=== PATIENT | female | born 1950 | race Caucasian/White ===

== ENCOUNTER 2017-12-01 09:06 | Outpatient (CLI) | payer OTHER ==
[~2017-12-01 09:06] MED LIST: AMOX1TAB12 PO; CYMBALTA60 MG PO; HYZAAR 100/25 T1 TAB PO; METFORMIN HCL500 MG PO; SYNTHROID112 MCG PO
== END 2017-12-01 09:12 | disposition home or self-care (01) ==
LOC: LAB 09:06
DX: D37.039 Neoplasm of uncertain behavior of the major salivary glands, unspecified (principal)

== ENCOUNTER 2017-12-14 10:40 | Outpatient (CLI) | payer OTHER | END 2017-12-14 10:46 | disposition home or self-care (01) | LOC: SONOGRAMA 10:40 | DX: E21.3 Hyperparathyroidism, unspecified (principal); D35.1 Benign neoplasm of parathyroid gland ==

== ENCOUNTER 2017-12-15 12:31 | Outpatient (CLI) | payer OTHER | END 2017-12-15 12:38 | disposition home or self-care (01) | LOC: NUCLEAR 12:31 | DX: E21.3 Hyperparathyroidism, unspecified (principal) | CPT/HCPCS: 78070; A9500 ==

== ENCOUNTER 2018-05-02 10:32 | Outpatient (CLI) | payer OTHER | END 2018-05-02 10:40 | disposition home or self-care (01) | LOC: LAB 10:32 | DX: E03.8 Other specified hypothyroidism (principal); E11.65 Type 2 diabetes mellitus with hyperglycemia; E21.2 Other hyperparathyroidism; M83.8 Other adult osteomalacia ==

== ENCOUNTER 2018-06-02 08:42 | Outpatient (CLI) | payer OTHER | END 2018-06-02 08:50 | disposition home or self-care (01) | LOC: LAB 08:42 | DX: E21.3 Hyperparathyroidism, unspecified (principal); E11.65 Type 2 diabetes mellitus with hyperglycemia; E03.8 Other specified hypothyroidism; I11.9 Hypertensive heart disease without heart failure ==

== ENCOUNTER 2018-08-23 09:38 | Outpatient (CLI) | payer OTHER | END 2018-08-23 09:42 | disposition home or self-care (01) | LOC: LAB 09:38 | DX: E11.65 Type 2 diabetes mellitus with hyperglycemia (principal); E11.21 Type 2 diabetes mellitus with diabetic nephropathy; E03.8 Other specified hypothyroidism; E21.2 Other hyperparathyroidism; N18.3 Chronic kidney disease, stage 3 (moderate); D63.1 Anemia in chronic kidney disease; N30.00 Acute cystitis without hematuria; E78.49 Other hyperlipidemia ==

== ENCOUNTER 2018-08-25 12:21 | Outpatient (CLI) | payer OTHER | END 2018-08-25 12:31 | disposition home or self-care (01) | LOC: LAB 12:21 | DX: N18.3 Chronic kidney disease, stage 3 (moderate) (principal); E11.21 Type 2 diabetes mellitus with diabetic nephropathy; D63.1 Anemia in chronic kidney disease; N30.00 Acute cystitis without hematuria; E78.49 Other hyperlipidemia; E03.8 Other specified hypothyroidism ==

== ENCOUNTER 2019-02-27 10:01 | Outpatient (CLI) | payer OTHER | END 2019-02-27 10:10 | disposition home or self-care (01) | LOC: LAB 10:01 | DX: E03.8 Other specified hypothyroidism (principal); E11.65 Type 2 diabetes mellitus with hyperglycemia; I10 Essential (primary) hypertension; I11.9 Hypertensive heart disease without heart failure; E78.2 Mixed hyperlipidemia; E11.9 Type 2 diabetes mellitus without complications; D47.2 Monoclonal gammopathy ==

== ENCOUNTER 2019-03-03 10:42 | Outpatient (CLI) | payer OTHER | END 2019-03-03 10:58 | disposition home or self-care (01) | LOC: SONOGRAMA 10:42 → MAMO-SONO 11:15 | DX: E04.1 Nontoxic single thyroid nodule (principal) ==

== ENCOUNTER → 2019-06-13 10:10 | Outpatient (CLI) | payer OTHER | END | disposition home or self-care (01) | LOC: LAB 10:10 | DX: E11.9 Type 2 diabetes mellitus without complications (principal); E11.21 Type 2 diabetes mellitus with diabetic nephropathy; E03.8 Other specified hypothyroidism; E78.00 Pure hypercholesterolemia, unspecified ==

== ENCOUNTER 2019-09-18 09:44 | Emergency (ER) | payer OTHER ==
[~2019-09-18] VITALS: Ht 165.1 cm; Wt 92.1 kg
[2019-09-18] MEDS ORDERED: NORVASC5 MG PO (10:27)
[2019-09-18] MEDS ORDERED: HYZAAR PO (10:27)
[2019-09-18] MEDS ORDERED: CRESTOR10 MG PO (10:28)
[2019-09-18] MEDS ORDERED: CEFADROXIL500 MG PO (14:52)
== END 2019-09-18 15:54 | disposition home or self-care (01) ==
LOC: ER 09:44
DX: G89.11 Acute pain due to trauma (principal); M79.672 Pain in left foot

== ENCOUNTER → 2019-09-28 08:40 | Outpatient (CLI) | payer OTHER ==
[~2019-09-28 08:40] MED LIST changes: +CEFADROXIL500 MG PO; +CRESTOR10 MG PO; +HYZAAR PO; +NORVASC5 MG PO
== END | disposition home or self-care (01) ==
LOC: LAB 08:40
DX: E03.8 Other specified hypothyroidism (principal); I10 Essential (primary) hypertension; E11.65 Type 2 diabetes mellitus with hyperglycemia; E78.2 Mixed hyperlipidemia

== ENCOUNTER 2019-12-20 07:45 | Outpatient (CLI) | payer OTHER | END 2019-12-20 07:50 | disposition home or self-care (01) | LOC: LAB 07:45 | DX: E78.2 Mixed hyperlipidemia (principal); I10 Essential (primary) hypertension; M83.8 Other adult osteomalacia; E03.8 Other specified hypothyroidism ==

== ENCOUNTER 2020-04-22 07:59 | Outpatient (CLI) | payer OTHER | END 2020-04-22 13:04 | disposition home or self-care (01) | LOC: LAB 07:59 | PROVIDERS: ATTEND Internal Medicine Endocrinology, Diabetes & Metabolism | DX: E03.8 Other specified hypothyroidism (principal); I10 Essential (primary) hypertension; E11.65 Type 2 diabetes mellitus with hyperglycemia ==

== ENCOUNTER → 2020-08-28 08:27 | Outpatient (CLI) | payer OTHER | END | disposition home or self-care (01) | LOC: LAB 08:27 | PROVIDERS: ATTEND Internal Medicine Endocrinology, Diabetes & Metabolism | DX: E03.8 Other specified hypothyroidism (principal); I10 Essential (primary) hypertension; E11.65 Type 2 diabetes mellitus with hyperglycemia; M83.8 Other adult osteomalacia; E78.2 Mixed hyperlipidemia ==

== ENCOUNTER 2020-09-23 08:30 | Outpatient (CLI) | payer OTHER | END 2020-09-23 08:48 | disposition home or self-care (01) | LOC: LAB 08:30 | PROVIDERS: ATTEND Internal Medicine Cardiovascular Disease | DX: I11.9 Hypertensive heart disease without heart failure (principal); E11.9 Type 2 diabetes mellitus without complications; E78.00 Pure hypercholesterolemia, unspecified ==

== ENCOUNTER 2021-03-28 09:43 | Outpatient (CLI) | payer OTHER | END 2021-03-28 09:51 | disposition home or self-care (01) | LOC: LAB 09:43 | PROVIDERS: ATTEND Internal Medicine Endocrinology, Diabetes & Metabolism | DX: E03.9 Hypothyroidism, unspecified (principal); M83.9 Adult osteomalacia, unspecified; E11.65 Type 2 diabetes mellitus with hyperglycemia ==

== ENCOUNTER 2021-07-29 09:00 | Outpatient (CLI) | payer OTHER | END 2021-07-29 09:30 | disposition home or self-care (01) | LOC: PPH VACUNA 09:00 | PROVIDERS: ATTEND Emergency Medicine Pediatric Emergency Medicine | DX: Z23 Encounter for immunization (principal) ==

== ENCOUNTER → 2021-08-27 07:19 | Outpatient (CLI) | payer OTHER | END | disposition home or self-care (01) | LOC: LAB 07:19 | PROVIDERS: ATTEND Internal Medicine Nephrology | DX: N18.31 Chronic kidney disease, stage 3a (principal); I10 Essential (primary) hypertension; E11.22 Type 2 diabetes mellitus with diabetic chronic kidney disease; E21.3 Hyperparathyroidism, unspecified; I11.0 Hypertensive heart disease with heart failure; E78.2 Mixed hyperlipidemia; E11.9 Type 2 diabetes mellitus without complications; E21.2 Other hyperparathyroidism ==

== ENCOUNTER → 2021-12-08 08:11 | Outpatient (CLI) | payer OTHER | END | disposition home or self-care (01) | LOC: LAB 08:11 | PROVIDERS: ATTEND Internal Medicine Nephrology | DX: I11.9 Hypertensive heart disease without heart failure (principal); E78.1 Pure hyperglyceridemia; E11.22 Type 2 diabetes mellitus with diabetic chronic kidney disease; R80.9 Proteinuria, unspecified ==

== ENCOUNTER 2022-04-14 08:40 | Outpatient (CLI) | payer OTHER | END 2022-04-14 08:55 | disposition home or self-care (01) | LOC: PPH VACUNA 08:40 | PROVIDERS: ATTEND Emergency Medicine Pediatric Emergency Medicine | DX: Z23 Encounter for immunization (principal) ==

== ENCOUNTER 2022-05-21 08:07 | Outpatient (CLI) | payer OTHER | END 2022-05-21 08:12 | disposition home or self-care (01) | LOC: LAB 08:07 | PROVIDERS: ATTEND Internal Medicine | DX: E21.3 Hyperparathyroidism, unspecified (principal); E55.9 Vitamin D deficiency, unspecified; E11.65 Type 2 diabetes mellitus with hyperglycemia; E03.8 Other specified hypothyroidism ==

== ENCOUNTER 2022-05-21 11:23 | Outpatient (CLI) | payer OTHER | END 2022-05-21 11:28 | disposition home or self-care (01) | LOC: SONOGRAMA 11:23 | PROVIDERS: ATTEND Internal Medicine | DX: E04.2 Nontoxic multinodular goiter (principal); R22.1 Localized swelling, mass and lump, neck ==

== ENCOUNTER 2022-07-20 08:04 | Emergency (ER) | payer OTHER ==
[~2022-07-20] VITALS: Ht 165.1 cm; Wt 92.5 kg
[~2022-07-20 08:04] MED LIST changes: +COZAAR100 MG PO; +SYNTHROID88 MCG PO
== END 2022-07-20 17:26 | disposition home or self-care (01) ==
LOC: ER 08:04
DX: K52.9 Noninfective gastroenteritis and colitis, unspecified (principal); I10 Essential (primary) hypertension; N19 Unspecified kidney failure; D72.823 Leukemoid reaction; K44.9 Diaphragmatic hernia without obstruction or gangrene; K80.20 Calculus of gallbladder without cholecystitis without obstruction

== ENCOUNTER 2022-07-23 07:00 | Outpatient (CLI) | payer OTHER | END 2022-07-23 07:01 | disposition home or self-care (01) | LOC: LAB 07:00 | PROVIDERS: ATTEND Internal Medicine | DX: I10 Essential (primary) hypertension (principal); K51.90 Ulcerative colitis, unspecified, without complications; N18.9 Chronic kidney disease, unspecified ==

== ENCOUNTER → 2022-07-28 07:56 | Outpatient (CLI) | payer OTHER | END | disposition home or self-care (01) | LOC: LAB 07:56 | PROVIDERS: ATTEND Internal Medicine | DX: E11.9 Type 2 diabetes mellitus without complications (principal); N18.30 Chronic kidney disease, stage 3 unspecified; I10 Essential (primary) hypertension; E21.3 Hyperparathyroidism, unspecified; E03.9 Hypothyroidism, unspecified; K51.90 Ulcerative colitis, unspecified, without complications ==

== ENCOUNTER 2022-08-13 12:10 | Outpatient (CLI) | payer OTHER | END 2022-08-13 12:11 | disposition home or self-care (01) | LOC: LAB 12:10 | PROVIDERS: ATTEND Internal Medicine | DX: E11.9 Type 2 diabetes mellitus without complications (principal); N18.30 Chronic kidney disease, stage 3 unspecified; I10 Essential (primary) hypertension; E21.3 Hyperparathyroidism, unspecified; E03.9 Hypothyroidism, unspecified; K51.90 Ulcerative colitis, unspecified, without complications; E55.9 Vitamin D deficiency, unspecified ==

== ENCOUNTER 2022-09-01 20:35 | Emergency (ER) | payer OTHER ==
[~2022-09-01] VITALS: Ht 165.1 cm; Wt 92.5 kg
[~2022-09-01 20:35] MED LIST changes: +AMOX1TAB5 PO
[2022-09-02] MEDS ORDERED: DOXYCYCLINE HY100 M2 PO (10:43)
== END 2022-09-02 10:51 | disposition home or self-care (01) ==
LOC: ER 20:35
DX: L03.115 Cellulitis of right lower limb (principal); E11.9 Type 2 diabetes mellitus without complications; Z79.84 Long term (current) use of oral hypoglycemic drugs; E03.9 Hypothyroidism, unspecified

== ENCOUNTER 2022-09-03 12:24 | Outpatient (CLI) | payer OTHER ==
[~2022-09-03 12:24] MED LIST changes: +DOXYCYCLINE HY100 M2 PO
== END 2022-09-03 12:29 | disposition home or self-care (01) ==
LOC: SONOGRAMA 12:24
PROVIDERS: ATTEND Otolaryngology
DX: D35.1 Benign neoplasm of parathyroid gland (principal)

== ENCOUNTER 2022-09-05 07:40 | Outpatient (CLI) | payer OTHER | END 2022-09-05 07:42 | disposition home or self-care (01) | LOC: LAB 07:40 | PROVIDERS: ATTEND General Practice | DX: L03.115 Cellulitis of right lower limb (principal) ==

== ENCOUNTER 2022-09-22 07:35 | Outpatient (CLI) | payer OTHER | END 2022-09-22 07:37 | disposition home or self-care (01) | LOC: LAB 07:35 | PROVIDERS: ATTEND Internal Medicine | DX: E11.9 Type 2 diabetes mellitus without complications (principal); N18.30 Chronic kidney disease, stage 3 unspecified; I10 Essential (primary) hypertension; E21.3 Hyperparathyroidism, unspecified; E03.9 Hypothyroidism, unspecified ==

== ENCOUNTER 2022-10-01 13:06 | Outpatient (CLI) | payer OTHER | END 2022-10-01 13:08 | disposition home or self-care (01) | LOC: SONOGRAMA 13:06 | PROVIDERS: ATTEND Pathology Anatomic Pathology & Clinical Pathology | DX: D44.0 Neoplasm of uncertain behavior of thyroid gland (principal); E04.1 Nontoxic single thyroid nodule ==

== ENCOUNTER 2022-10-21 10:17 | Emergency (ER) | payer OTHER ==
[~2022-10-21] VITALS: Ht 165.1 cm; Wt 92.5 kg
[2022-10-21] MEDS ORDERED: LOSARTAN POTAS100 MG PO (10:24)
[2022-10-21] MEDS ORDERED: CIPRO500 MG PO (15:18)
== END 2022-10-21 15:26 | disposition home or self-care (01) ==
LOC: ER 10:17
DX: N30.90 Cystitis, unspecified without hematuria (principal); Z86.79 Personal history of other diseases of the circulatory system; Z86.39 Personal history of other endocrine, nutritional and metabolic disease

== ENCOUNTER 2022-10-26 10:05 | Outpatient (CLI) | payer OTHER ==
[~2022-10-26 10:05] MED LIST changes: +CIPRO500 MG PO; +LOSARTAN POTAS100 MG PO
== END 2022-10-26 15:13 | disposition home or self-care (01) ==
LOC: LAB 10:05
PROVIDERS: ATTEND Internal Medicine
DX: R94.5 Abnormal results of liver function studies (principal); E11.9 Type 2 diabetes mellitus without complications; N18.30 Chronic kidney disease, stage 3 unspecified; E21.3 Hyperparathyroidism, unspecified; E03.9 Hypothyroidism, unspecified; I10 Essential (primary) hypertension; Z86.19 Personal history of other infectious and parasitic diseases

== ENCOUNTER 2022-11-05 11:12 | Outpatient (CLI) | payer OTHER | END 2022-11-05 14:41 | disposition home or self-care (01) | LOC: LAB 11:12 | PROVIDERS: ATTEND Otolaryngology | DX: R05.9 Cough, unspecified (principal); Z20.828 Contact with and (suspected) exposure to other viral communicable diseases; C73 Malignant neoplasm of thyroid gland; E21.3 Hyperparathyroidism, unspecified ==

== ENCOUNTER 2022-11-12 06:50 | Outpatient (CLI) | payer OTHER | END 2022-11-12 06:56 | disposition home or self-care (01) | LOC: LAB 06:50 | PROVIDERS: ATTEND Internal Medicine | DX: N18.30 Chronic kidney disease, stage 3 unspecified (principal) ==

== ENCOUNTER 2022-11-24 12:16 | Outpatient (CLI) | payer OTHER | END 2022-11-24 12:17 | disposition home or self-care (01) | LOC: LAB 12:16 | PROVIDERS: ATTEND Otolaryngology | DX: Z03.818 Encounter for observation for suspected exposure to other biological agents ruled out (principal) ==

== ENCOUNTER 2022-11-27 05:11 | Inpatient (IN) | payer OTHER | END 2022-11-28 14:19 | disposition home or self-care (01) | DRG 627 | LOC: CIR.AMB 05:11 → SURH 13:45 → O/R 13:45 → SURH 14:07 | PROVIDERS: ADMIT Otolaryngology; ATTEND Otolaryngology | PROC: 0GTR0ZZ Resection of Parathyroid Gland, Open Approach (ICD-10-PCS; 2022-11-27) | PROC: 0GTH0ZZ Resection of Right Thyroid Gland Lobe, Open Approach (ICD-10-PCS; principal; 2022-11-27 07:00) | DX: C73 Malignant neoplasm of thyroid gland (principal); Z20.822 Contact with and (suspected) exposure to COVID-19 ==

== ENCOUNTER 2022-12-28 10:31 | Outpatient (CLI) | payer OTHER | END 2022-12-28 10:43 | disposition home or self-care (01) | LOC: LAB 10:31 | PROVIDERS: ATTEND Internal Medicine | DX: E11.65 Type 2 diabetes mellitus with hyperglycemia (principal); C73 Malignant neoplasm of thyroid gland; E03.8 Other specified hypothyroidism; I10 Essential (primary) hypertension; E78.5 Hyperlipidemia, unspecified; E21.3 Hyperparathyroidism, unspecified ==

== ENCOUNTER 2023-02-02 11:41 | Outpatient (CLI) | payer OTHER | END 2023-02-02 11:42 | disposition home or self-care (01) | LOC: LAB 11:41 → EDBD 11:41 → LAB 11:42 | PROVIDERS: ATTEND Internal Medicine | DX: K80.20 Calculus of gallbladder without cholecystitis without obstruction (principal); E21.3 Hyperparathyroidism, unspecified; K51.90 Ulcerative colitis, unspecified, without complications; E55.9 Vitamin D deficiency, unspecified; Z86.19 Personal history of other infectious and parasitic diseases; D21.3 Benign neoplasm of connective and other soft tissue of thorax; E11.21 Type 2 diabetes mellitus with diabetic nephropathy; E03.8 Other specified hypothyroidism; C73 Malignant neoplasm of thyroid gland; N18.4 Chronic kidney disease, stage 4 (severe); R80.9 Proteinuria, unspecified ==

== ENCOUNTER 2023-05-13 09:16 | Outpatient (CLI) | payer OTHER | END 2023-05-13 09:21 | disposition home or self-care (01) | LOC: SONOGRAMA 09:16 | PROVIDERS: ATTEND Internal Medicine | DX: C73 Malignant neoplasm of thyroid gland (principal); R22.1 Localized swelling, mass and lump, neck ==

== ENCOUNTER 2023-05-17 07:28 | Outpatient (CLI) | payer OTHER | END 2023-05-17 07:30 | disposition home or self-care (01) | LOC: LAB 07:28 | PROVIDERS: ATTEND Internal Medicine | DX: C73 Malignant neoplasm of thyroid gland (principal) ==

== ENCOUNTER 2023-06-05 09:10 | Outpatient (CLI) | payer OTHER | END 2023-06-05 09:16 | disposition home or self-care (01) | LOC: LAB 09:10 | PROVIDERS: ATTEND Internal Medicine Nephrology | DX: R80.9 Proteinuria, unspecified (principal); N18.32 Chronic kidney disease, stage 3b ==

== ENCOUNTER 2023-06-07 14:22 | Outpatient (CLI) | payer OTHER | END 2023-06-07 14:26 | disposition home or self-care (01) | LOC: RAD 14:22 | PROVIDERS: ATTEND Internal Medicine | DX: S99.922A Unspecified injury of left foot, initial encounter (principal) ==

== ENCOUNTER 2023-06-10 09:17 | Outpatient (CLI) | payer OTHER | END 2023-06-10 15:34 | disposition home or self-care (01) | LOC: LAB 09:17 | PROVIDERS: ATTEND Internal Medicine | DX: N18.4 Chronic kidney disease, stage 4 (severe) (principal) ==

== ENCOUNTER 2023-07-01 10:35 | Outpatient (CLI) | payer OTHER | END 2023-07-01 10:38 | disposition home or self-care (01) | LOC: LAB 10:35 | PROVIDERS: ATTEND Internal Medicine Nephrology | DX: E11.22 Type 2 diabetes mellitus with diabetic chronic kidney disease (principal); N18.4 Chronic kidney disease, stage 4 (severe); R80.9 Proteinuria, unspecified; E11.65 Type 2 diabetes mellitus with hyperglycemia; E78.5 Hyperlipidemia, unspecified; E03.8 Other specified hypothyroidism; E11.21 Type 2 diabetes mellitus with diabetic nephropathy; E55.9 Vitamin D deficiency, unspecified; E53.8 Deficiency of other specified B group vitamins ==

== ENCOUNTER 2023-07-05 14:40 | Outpatient (CLI) | payer OTHER | END 2023-07-05 14:41 | disposition home or self-care (01) | LOC: LAB 14:40 | PROVIDERS: ATTEND Internal Medicine | DX: C11.1 Malignant neoplasm of posterior wall of nasopharynx (principal); J06.9 Acute upper respiratory infection, unspecified; R50.9 Fever, unspecified; Z20.822 Contact with and (suspected) exposure to COVID-19 ==

== ENCOUNTER → 2023-07-27 08:22 | Outpatient (CLI) | payer OTHER ==
[2023-07-27 09:17] LABS: HEMATOCRIT 30.7 % (36.0-45.00); HEMOGLOBIN 10.1 g/dL (12.0-15.00); MEAN CELL VOLUME 86.1 fL (80.00-100.00); MEAN CORPUSCULAR HEMOGLOBIN 28.4 pg (27.00-32.0); PLATELET COUNT 369 K/uL (150-450); RED BLOOD COUNT 3.56 M/uL (4.00-6.00); RED CELL DISTRIBUTION WIDTH 13.8 % (11.5-14.5)
[2023-07-27 10:06] LABS: ALBUMIN 3.1 gm/dL (3.4-5.0); BILIRUBIN TOTAL 0.34 mg/dL (0.3-1.2); CALCIUM 8.5 mg/dL (8.5-10.1); CREATININE SERUM 3.71 mg/dL (0.55-1.02); GFR 12.04; GLOBULINA 3.5 G/DL (2.4-3.5); POTASSIUM 5.12 mEq/L (3.5-5.1); TOTAL PROTEIN 6.6 gm/dL (6.4-8.2)
== END | disposition home or self-care (01) ==
LOC: LAB 08:22
PROVIDERS: ATTEND Internal Medicine Cardiovascular Disease
DX: E11.9 Type 2 diabetes mellitus without complications (principal)

== ENCOUNTER 2023-08-27 12:20 | Outpatient (CLI) | payer OTHER ==
[2023-08-27 13:14] LABS: HEMATOCRIT 31.8 % (36.0-45.00); MEAN CELL VOLUME 84.6 fL (80.00-100.00); MEAN CORPUSCULAR HEMOGLOBIN 29.2 pg (27.00-32.0); MEAN CORPUSCULAR HGB CONC 34.5 g/dl (32.0-36.0); PLATELET COUNT 280 K/uL (150-450); RED BLOOD COUNT 3.75 M/uL (4.00-6.00); RED CELL DISTRIBUTION WIDTH 14.7 % (11.5-14.5)
[2023-08-27 13:40] LABS: URINE APPEARANCE Clear; URINE BILIRRUBIN Negative (NEGATIVE); URINE BLOOD Negative; URINE COLOR Yellow; URINE GLUCOSE Negative (NEGATIVE); URINE LEUKOCYTE Negative; URINE NITRATE Negative; URINE PROTEIN >=1000 (NEGATIVE); URINE UROBILINOGEN 0.2 E.U./dl
[2023-08-27 13:42] LABS: URINE EPITHELIAL CELLS 11.1 uL (0.0-38.8); URINE RBC 2.1 uL (0.0-20.8); URINE WBC 5.5 uL (0.0-23.2)
[2023-08-27 13:54] LABS: ob NEGATIVE (NEGATIVE)
[2023-08-27 14:18] LABS: ALBUMIN 3.3 gm/dL (3.4-5.0); BILIRUBIN TOTAL 0.34 mg/dL (0.3-1.2); CALCIUM 8.8 mg/dL (8.5-10.1); CHOL HDL RATIO 3.7 (0-5.0); CREATININE SERUM 3.4 mg/dL (0.55-1.02); GFR 13.31; GLOBULINA 3.3 G/DL (2.4-3.5); POTASSIUM 4.87 mEq/L (3.5-5.1); T4 FREE 1.18 NG/ML (0.76-1.46); TOTAL PROTEIN 6.6 gm/dL (6.4-8.2); TSH 1.13 uIU/mL (0.358-3.74)
== END 2023-08-27 12:22 | disposition home or self-care (01) ==
LOC: LAB 12:20
PROVIDERS: ATTEND Internal Medicine
DX: R19.7 Diarrhea, unspecified (principal); R10.30 Lower abdominal pain, unspecified; N18.4 Chronic kidney disease, stage 4 (severe); E03.9 Hypothyroidism, unspecified; E21.3 Hyperparathyroidism, unspecified; E11.65 Type 2 diabetes mellitus with hyperglycemia; K51.919 Ulcerative colitis, unspecified with unspecified complications

== ENCOUNTER 2023-09-12 12:59 | Emergency (ER) | payer OTHER ==
[~2023-09-12] VITALS: Ht 165.1 cm; Wt 82.1 kg
== END 2023-09-12 14:53 | disposition home or self-care (01) ==
LOC: ER 12:59
DX: K05.10 Chronic gingivitis, plaque induced (principal); N18.5 Chronic kidney disease, stage 5
CPT/HCPCS: 96372; 99284; J3490

== ENCOUNTER 2023-11-03 19:41 | Inpatient (IN) | payer OTHER ==
[~2023-11-03] VITALS: Ht 165.1 cm; Wt 86.2 kg
[2023-11-03] MEDS ORDERED: CARVEDILOL12.5 MG (20:12)
[2023-11-04] MEDS ORDERED: MEPERIDINE HCL/PF 25 MG/ML VIAL IM STA (00:36)
[2023-11-04] MEDS ORDERED: PROMETHAZINE HCL 25 MG/ML AMPUL IM STA (00:36)
[2023-11-04] MEDS ORDERED: FAMOTIDINE/PF 20 MG/2 ML VIAL IV PUSH STA (00:37)
[2023-11-04] MEDS ORDERED: 0.9 % SODIUM CHLORIDE 1,000 ML IV ONE (00:45)
[2023-11-04 01:32] LABS: MEAN CELL VOLUME 84.9 fL (80.00-100.00); MEAN CORPUSCULAR HGB CONC 33.8 g/dl (32.0-36.0); PLATELET COUNT 333 K/uL (150-450); RED BLOOD COUNT 3.77 M/uL (4.00-6.00); RED CELL DISTRIBUTION WIDTH 14.2 % (11.5-14.5)
[2023-11-04 01:33] LABS: HEMOGLOBIN 10.8 g/dL (12.0-15.00); MEAN CORPUSCULAR HEMOGLOBIN 28.6 pg (27.00-32.0)
[2023-11-04 01:46] LABS: INR 1.18; PARTIAL THROMBOPLASTIN TIME 25.6 SECONDS (22.0-34.0); PROTHROMBIN TIME 12.2 SECONDS (9.0-11.5)
[2023-11-04 01:58] LABS: ALBUMIN 3.4 gm/dL (3.4-5.0); ALKALINE PHOSPHATASE 133 U/L (50-136); ALT/SGPT 20 U/L (12-78); AMYLASE 96 U/L (25-115); ANION GAP 15 (10.0-20.0); AST/SGOT 20 U/L (15-37); BILIRUBIN TOTAL 0.43 mg/dL (0.3-1.2); BILIRUBIN,CONJUGATED < 0.10 mg/dL (0.0-0.2); BILIRUBIN,UNCONJUGATED 0.33 mg/dL (0.0-0.6); BLOOD UREA NITROGEN 73 mg/dL (7-18); BUN CREA RATIO 17 (7.0-25.0); CALCIUM 8.4 mg/dL (8.5-10.1); CARBON DIOXIDE 20 mEq/L (21-32); CHLORIDE 106 mmol/L (98-107); GFR 10.21; GLOBULINA 4.5 G/DL (2.4-3.5); GLUCOSE FASTING 123 mg/dL (65-100); LIPASE 45 U/L (13-75); OSMOLALITY SERUM 297 MOSM/KG (275-295); POTASSIUM 4.47 mEq/L (3.5-5.1); SODIUM 137 mmol/L (136-145); TOTAL PROTEIN 7.9 gm/dL (6.4-8.2)
[2023-11-04 02:22] LABS: CREATININE SERUM 4.28 mg/dL (0.55-1.02)
[2023-11-04 04:44] LABS: PH,URINE 6.5 (5.0-8.0); URINE APPEARANCE Clear; URINE BILIRRUBIN Negative (NEGATIVE); URINE BLOOD Small; URINE COLOR Yellow; URINE LEUKOCYTE Negative; URINE NITRATE Negative; URINE PROTEIN >=1000 (NEGATIVE); URINE UROBILINOGEN 0.2 E.U./dl
[2023-11-04 04:48] LABS: URINE BACTERIA 139.8 uL (0.0-1933); URINE EPITHELIAL CELLS 5.5 uL (0.0-38.8); URINE RBC 3.1 uL (0.0-20.8); URINE WBC 41.4 uL (0.0-23.2)
[2023-11-04 04:56] LABS: URINE GLUCOSE 100 MG/DL (NEGATIVE)
[2023-11-04] MEDS ORDERED: hydrALAZINE HCL 25 MG TABLET PO SCH (09:59)
[2023-11-04] MEDS ORDERED: AMLODIPINE BESYLATE 10 MG TABLET PO SCH (09:59)
[2023-11-04] MEDS ORDERED: SERTRALINE HCL 50 MG TABLET PO SCH (09:59)
[2023-11-04] MEDS ORDERED: SODIUM CHLORIDE 0.45 % 1,000 ML IV SCH (10:00)
[2023-11-04] MEDS ORDERED: GABAPENTIN 300 MG CAPSULE PO SCH (17:00)
[2023-11-04] MEDS ORDERED: CARVEDILOL 3.125 MG TABLET PO SCH (21:00)
[2023-11-05] MEDS ORDERED: LEVOTHYROXINE SODIUM 88 MCG TABLET PO SCH (06:00)
[2023-11-05 06:17] LABS: INR 1.46; PARTIAL THROMBOPLASTIN TIME 29.7 SECONDS (22.0-34.0); PROTHROMBIN TIME 14.9 SECONDS (9.0-11.5)
[2023-11-05] MEDS ORDERED: DICYCLOMINE HCL 10 MG CAPSULE PO STA (06:40)
[2023-11-05] MEDS ORDERED: DICYCLOMINE HCL 10 MG CAPSULE PO PRN (06:45)
[2023-11-05] MEDS ORDERED: CEFTRIAXONE SODIUM 1,000 MG VIAL IV SCH (07:00)
[2023-11-05] MEDS ORDERED: PANTOPRAZOLE SODIUM 40 MG/VIAL VIAL IV SCH (13:15)
[2023-11-05] MEDS ORDERED: MORPHINE SULFATE 2 MG/ML CARTRIDGE IV PRN (13:15)
[2023-11-05 15:37] LABS: HEMATOCRIT 29.6 % (36.0-45.00); MEAN CELL VOLUME 85.2 fL (80.00-100.00); MEAN CORPUSCULAR HGB CONC 33.5 g/dl (32.0-36.0); PLATELET COUNT 243 K/uL (150-450); RED BLOOD COUNT 3.48 M/uL (4.00-6.00); RED CELL DISTRIBUTION WIDTH 14.7 % (11.5-14.5)
[2023-11-05 15:39] LABS: HEMOGLOBIN 9.9 g/dL (12.0-15.00); MEAN CORPUSCULAR HEMOGLOBIN 28.4 pg (27.00-32.0)
[2023-11-05 15:57] LABS: INR 1.4; PARTIAL THROMBOPLASTIN TIME 27.9 SECONDS (22.0-34.0); PROTHROMBIN TIME 14.3 SECONDS (9.0-11.5)
[2023-11-05 16:06] LABS: ALBUMIN 2.7 gm/dL (3.4-5.0); BILIRUBIN TOTAL 0.51 mg/dL (0.3-1.2); BILIRUBIN,CONJUGATED 0.16 mg/dL (0.0-0.2); BILIRUBIN,UNCONJUGATED 0.35 mg/dL (0.0-0.6); CHOL HDL RATIO 3.5 (0-5.0); PHOSPHOROUS 5.4 mg/dL (2.5-4.9); POTASSIUM 4.57 mEq/L (3.5-5.1); T4 FREE 1.24 NG/ML (0.76-1.46); TOTAL PROTEIN 5.6 gm/dL (6.4-8.2); TSH 1.33 uIU/mL (0.358-3.74)
[2023-11-05 16:07] LABS: GFR 10.43
[2023-11-05 16:10] LABS: C-REACTIVE PROTEIN 24.8 MG/DL (0.00-0.29)
[2023-11-05 16:11] LABS: CREATININE SERUM 4.2 mg/dL (0.55-1.02)
[2023-11-05 18:12] LABS: CALCIUM 7.9 mg/dL (8.5-10.1); CHOL HDL RATIO 3.2 (0-5.0); GFR 10.15; POTASSIUM 4.65 mEq/L (3.5-5.1)
[2023-11-05 18:25] LABS: CREATININE SERUM 4.3 mg/dL (0.55-1.02)
[2023-11-05] MEDS ORDERED: BUPIVACAINE HCL/PF 0.5% 30ML ML ONE ×2 (19:28→21:24)
[2023-11-05] MEDS ORDERED: LIDOCAINE HCL 1% 200MG/20ML VIAL IJ ONE ×2 (19:28→21:30)
[2023-11-05] MEDS ORDERED: PIPERACILLIN/TAZOBACTAM SODIUM 3.375 GM VIAL IV ONE ×2 (20:47→21:30)
[2023-11-05] MEDS ORDERED: METRONIDAZOLE/SODIUM CHLORIDE 100 ML IV SCH (21:00)
[2023-11-05] MEDS ORDERED: MEROPENEM 500 MG/VIAL VIAL IV SCH (21:00)
[2023-11-05] MEDS ORDERED: ISOPROPYL ALCOHOL 30 ML OUNCE TOP ONE (21:30)
[2023-11-05] MEDS ORDERED: BUPIVACAINE HCL/PF 0.5% 5MG/ML VIAL IV ONE (21:30)
[2023-11-05] MEDS ORDERED: PROMETHAZINE HCL 50 MG/ML AMPUL IM PRN (22:15)
[2023-11-05] MEDS ORDERED: MEPERIDINE HCL/PF 50 MG/ML VIAL IM PRN (22:15)
[2023-11-05] MEDS ORDERED: ENALAPRILAT DIHYDRATE 2.5 MG/2 ML VIAL IV PRN (22:15)
[2023-11-05] MEDS ORDERED: 0.9 % SODIUM CHLORIDE 1,000 ML IV SCH (22:15)
[2023-11-05] MEDS ORDERED: ONDANSETRON HCL 2 MG/ML VIAL IV PRN (22:15)
[2023-11-06] MEDS ORDERED: hydrALAZINE HCL 20 MG VIAL IV PRN (00:45)
[2023-11-06] MEDS ORDERED: CEFAZOLIN SODIUM 1,000 MG VIAL ONE (01:40)
[2023-11-06 04:46] LABS: HEMATOCRIT 26.7 % (36.0-45.00); HEMOGLOBIN 8.9 g/dL (12.0-15.00); MEAN CELL VOLUME 85.2 fL (80.00-100.00); MEAN CORPUSCULAR HEMOGLOBIN 28.4 pg (27.00-32.0); MEAN CORPUSCULAR HGB CONC 33.4 g/dl (32.0-36.0); PLATELET COUNT 246 K/uL (150-450); RED BLOOD COUNT 3.13 M/uL (4.00-6.00); RED CELL DISTRIBUTION WIDTH 14.9 % (11.5-14.5)
[2023-11-06 05:04] LABS: CALCIUM 7.8 mg/dL (8.5-10.1); GFR 8.41; POTASSIUM 5.62 mEq/L (3.5-5.1)
[2023-11-06 05:23] LABS: CREATININE SERUM 5.06 mg/dL (0.55-1.02)
[2023-11-06] MEDS ORDERED: FUROsemide 20 MG/2 ML VIAL IV SCH (05:30)
[2023-11-06] MEDS ORDERED: LEVOTHYROXINE SODIUM 88 MCG TABLET PO SCH (06:00)
[2023-11-06] MEDS ORDERED: AMLODIPINE BESYLATE 5 MG TABLET PO SCH (09:00)
[2023-11-06] MEDS ORDERED: CARVEDILOL 3.125 MG TABLET PO SCH (09:00)
[2023-11-06] MEDS ORDERED: LOSARTAN POTASSIUM 25 MG TABLET PO SCH (09:00)
[2023-11-06] MEDS ORDERED: CEFAZOLIN SODIUM 1,000 MG VIAL IV SCH (09:00)
[2023-11-06] MEDS ORDERED: GABAPENTIN 300 MG CAPSULE PO SCH (09:00)
[2023-11-06] MEDS ORDERED: MEROPENEM 500 MG/VIAL VIAL IV SCH (09:00)
[2023-11-06] MEDS ORDERED: METRONIDAZOLE/SODIUM CHLORIDE 100 ML IV SCH (09:00)
[2023-11-06] MEDS ORDERED: HYDROCHLOROTHIAZIDE 12.5 MG CAPSULE PO SCH (09:00)
[2023-11-06] MEDS ORDERED: SERTRALINE HCL 50 MG TABLET PO SCH (09:00)
[2023-11-06] MEDS ORDERED: PANTOPRAZOLE SODIUM 40 MG/VIAL VIAL IV SCH (10:57)
[2023-11-06] MEDS ORDERED: SODIUM POLYSTYRENE SULFONATE 15 G/4 TSP TSP PO SCH (13:00)
[2023-11-06 13:31] LABS: CALCIUM 7.9 mg/dL (8.5-10.1); GFR 7.96
[2023-11-06 14:40] LABS: CREATININE SERUM 5.31 mg/dL (0.55-1.02); POTASSIUM 5.19 mEq/L (3.5-5.1)
[2023-11-06] MEDS ORDERED: AA 5 %/CALCIUM/LYTES/DEXT 20 % 2,000 ML CENTRAL SCH (17:00)
[2023-11-06] MEDS ORDERED: ZOLPIDEM TARTRATE 5 MG TABLET PO SCH (21:00)
[2023-11-07 07:35] LABS: ALBUMIN 2.3 gm/dL (3.4-5.0); BILIRUBIN TOTAL 0.54 mg/dL (0.3-1.2); CALCIUM 7.6 mg/dL (8.5-10.1); GFR 7.76; GLOBULINA 3.3 G/DL (2.4-3.5); PHOSPHOROUS 6.5 mg/dL (2.5-4.9); POTASSIUM 4.84 mEq/L (3.5-5.1); TOTAL PROTEIN 5.6 gm/dL (6.4-8.2)
[2023-11-07 07:37] LABS: URINE APPEARANCE Clear; URINE BILIRRUBIN Negative (NEGATIVE); URINE BLOOD Trace; URINE COLOR Yellow; URINE GLUCOSE Negative (NEGATIVE); URINE LEUKOCYTE Negative; URINE NITRATE Negative; URINE UROBILINOGEN 0.2 E.U./dl
[2023-11-07 07:37] LABS: HEMATOCRIT 29.7 % (36.0-45.00); MEAN CELL VOLUME 85.9 fL (80.00-100.00); MEAN CORPUSCULAR HEMOGLOBIN 28.9 pg (27.00-32.0); MEAN CORPUSCULAR HGB CONC 33.7 g/dl (32.0-36.0); PLATELET COUNT 249 K/uL (150-450); RED BLOOD COUNT 3.45 M/uL (4.00-6.00); RED CELL DISTRIBUTION WIDTH 14.8 % (11.5-14.5)
[2023-11-07 07:41] LABS: URINE BACTERIA 28.9 uL (0.0-1933); URINE EPITHELIAL CELLS 5.8 uL (0.0-38.8); URINE RBC 43.4 uL (0.0-20.8)
[2023-11-07 08:20] LABS: CREATININE SERUM 5.43 mg/dL (0.55-1.02)
[2023-11-07 09:11] LABS: URINE PROTEIN 100 (NEGATIVE)
[2023-11-07] MEDS ORDERED: SODIUM BICARBONATE 1 MEQ/ML DISP.SYRIN 50ML IV SCH (17:57)
[2023-11-08 06:34] LABS: HEMATOCRIT 29.4 % (36.0-45.00); HEMOGLOBIN 9.8 g/dL (12.0-15.00); MEAN CELL VOLUME 85.2 fL (80.00-100.00); MEAN CORPUSCULAR HEMOGLOBIN 28.4 pg (27.00-32.0); MEAN CORPUSCULAR HGB CONC 33.3 g/dl (32.0-36.0); PLATELET COUNT 228 K/uL (150-450); RED BLOOD COUNT 3.45 M/uL (4.00-6.00); RED CELL DISTRIBUTION WIDTH 14.5 % (11.5-14.5)
[2023-11-08 07:11] LABS: INR 1.22; PARTIAL THROMBOPLASTIN TIME 30.2 SECONDS (22.0-34.0); PROTHROMBIN TIME 12.6 SECONDS (9.0-11.5)
[2023-11-08 07:27] LABS: ALBUMIN 2.1 gm/dL (3.4-5.0); BILIRUBIN TOTAL 0.44 mg/dL (0.3-1.2); BILIRUBIN,CONJUGATED 0.18 mg/dL (0.0-0.2); BILIRUBIN,UNCONJUGATED 0.26 mg/dL (0.0-0.6); CALCIUM 7.1 mg/dL (8.5-10.1); CHOL HDL RATIO 4.1 (0-5.0); MAGNESIUM 1.8 mg/dL (1.8-2.4); PHOSPHOROUS 4.5 mg/dL (2.5-4.9); POTASSIUM 4.83 mEq/L (3.5-5.1); TOTAL PROTEIN 5.1 gm/dL (6.4-8.2)
[2023-11-08 08:14] LABS: CREATININE SERUM 4.83 mg/dL (0.55-1.02); GFR 8.88
[2023-11-08] MEDS ORDERED: LEVOTHYROXINE SODIUM 100 MCG/VIAL VIAL IV SCH (09:00)
[2023-11-08 09:19] LABS: UREA CLEARANCE 10.6 ML/MIN
[2023-11-09] MEDS ORDERED: DEXTROSE 50 % IN WATER 0.5 G/ML DISP.SYRIN IV PRN (08:45)
[2023-11-09] MEDS ORDERED: INSULIN LISPRO 1,000 UNIT/10 ML UNITS SUBCUTANEO PRN (08:45)
[2023-11-09] MEDS ORDERED: FLUCONAZOLE IN NACL,ISO-OSM 200 MG/100 ML PIGGYBAG IV ONE (17:00)
[2023-11-09 18:09] LABS: PH,URINE 5.5 (5.0-8.0); URINE APPEARANCE Clear; URINE BILIRRUBIN Negative (NEGATIVE); URINE BLOOD Trace; URINE COLOR Yellow; URINE LEUKOCYTE Negative; URINE NITRATE Negative; URINE UROBILINOGEN 0.2 E.U./dl
[2023-11-09 18:12] LABS: URINE BACTERIA 32.7 uL (0.0-1933); URINE EPITHELIAL CELLS 4.6 uL (0.0-38.8); URINE WBC 6.4 uL (0.0-23.2)
[2023-11-09 18:25] LABS: URINE GLUCOSE 250 MG/DL (NEGATIVE); URINE PROTEIN 300 (NEGATIVE)
[2023-11-09] MEDS ORDERED: VANCOMYCIN HCL 125 MG/7.5 ML BLIST.PACK PO SCH (19:42)
[2023-11-10 06:22] LABS: HEMATOCRIT 31.9 % (36.0-45.00); HEMOGLOBIN 10.5 g/dL (12.0-15.00); MEAN CELL VOLUME 84.8 fL (80.00-100.00); MEAN CORPUSCULAR HEMOGLOBIN 27.8 pg (27.00-32.0); MEAN CORPUSCULAR HGB CONC 32.8 g/dl (32.0-36.0); PLATELET COUNT 208 K/uL (150-450); RED BLOOD COUNT 3.77 M/uL (4.00-6.00); RED CELL DISTRIBUTION WIDTH 14.8 % (11.5-14.5)
[2023-11-10 07:02] LABS: ALBUMIN 2.1 gm/dL (3.4-5.0); BILIRUBIN TOTAL 0.45 mg/dL (0.3-1.2); CREATININE SERUM 3.63 mg/dL (0.55-1.02); GFR 12.34; MAGNESIUM 1.6 mg/dL (1.8-2.4); PHOSPHOROUS 4.9 mg/dL (2.5-4.9); POTASSIUM 4.83 mEq/L (3.5-5.1); TOTAL PROTEIN 5.1 gm/dL (6.4-8.2)
[2023-11-10 07:22] LABS: C-REACTIVE PROTEIN 9.84 MG/DL (0.00-0.29)
[2023-11-10] MEDS ORDERED: FLUCONAZOLE IN NACL,ISO-OSM 2 MG/ML ML IV SCH (17:00)
[2023-11-11] MEDS ORDERED: CITRIC ACID/SODIUM CITRATE 30 ML BLIST.PACK PO SCH (09:00)
[2023-11-11] MEDS ORDERED: NYSTATIN 15 GM,SILVER SULFADIAZINE 50 GM,ZINC OXIDE 30 GM TOP SCH (09:00)
[2023-11-11 11:57] LABS: HEMATOCRIT 33.2 % (36.0-45.00); MEAN CELL VOLUME 87.2 fL (80.00-100.00); MEAN CORPUSCULAR HGB CONC 32.7 g/dl (32.0-36.0); RED BLOOD COUNT 3.81 M/uL (4.00-6.00); RED CELL DISTRIBUTION WIDTH 14.7 % (11.5-14.5)
[2023-11-11 12:21] LABS: HEMOGLOBIN 10.9 g/dL (12.0-15.00); MEAN CORPUSCULAR HEMOGLOBIN 28.6 pg (27.00-32.0)
[2023-11-11 12:22] LABS: PLATELET COUNT 200 K/uL (150-450)
[2023-11-11 12:40] LABS: CALCIUM 7.6 mg/dL (8.5-10.1); CREATININE SERUM 3.71 mg/dL (0.55-1.02); GFR 12.04; MAGNESIUM 1.5 mg/dL (1.8-2.4); PHOSPHOROUS 5.2 mg/dL (2.5-4.9); POTASSIUM 4.77 mEq/L (3.5-5.1)
[2023-11-11] MEDS ORDERED: MAGNESIUM SULFATE IN WATER 50 ML IV ONE (17:45)
[2023-11-11] MEDS ORDERED: LIDOCAINE HCL 1% 200MG/20ML VIAL IJ ONE ×2 (19:11→20:45)
[2023-11-11] MEDS ORDERED: BUPIVACAINE HCL/PF 0.5% 30ML ML ONE (19:12)
[2023-11-11] MEDS ORDERED: IOVERSOL 320 MG/ML - 50 ML VIAL IV ONE (19:12)
[2023-11-11] MEDS ORDERED: HEPARIN SODIUM,PORCINE 5,000 UNITS/ML VIAL IV ONE (20:45)
[2023-11-11] MEDS ORDERED: BUPIVACAINE HCL 250MG/50ML VIAL IV ONE (20:45)
[2023-11-11] MEDS ORDERED: METRONIDAZOLE/SODIUM CHLORIDE 500 MG/100 ML PIGGYBACK IV ONE (21:08)
[2023-11-12] MEDS ORDERED: ENOXAPARIN SODIUM 30 MG/0.3 ML SYRINGE SUBCUTANEO SCH (09:28)
[2023-11-14 11:38] LABS: ALBUMIN 1.8 gm/dL (3.4-5.0); BILIRUBIN TOTAL 0.34 mg/dL (0.3-1.2); CALCIUM 7.2 mg/dL (8.5-10.1); CREATININE SERUM 3.03 mg/dL (0.55-1.02); GFR 15.21; MAGNESIUM 1.8 mg/dL (1.8-2.4); PHOSPHOROUS 5.2 mg/dL (2.5-4.9); POTASSIUM 3.85 mEq/L (3.5-5.1); TOTAL PROTEIN 4.8 gm/dL (6.4-8.2)
[2023-11-14 11:46] LABS: HEMATOCRIT 25.6 % (36.0-45.00); MEAN CELL VOLUME 85.1 fL (80.00-100.00); MEAN CORPUSCULAR HGB CONC 32.9 g/dl (32.0-36.0); PLATELET COUNT 192 K/uL (150-450); RED BLOOD COUNT 3.01 M/uL (4.00-6.00); RED CELL DISTRIBUTION WIDTH 14.5 % (11.5-14.5)
[2023-11-14 11:47] LABS: HEMOGLOBIN 8.4 g/dL (12.0-15.00); MEAN CORPUSCULAR HEMOGLOBIN 27.9 pg (27.00-32.0)
[2023-11-14] MEDS ORDERED: AMINO ACIDS/PROTEIN HYDROLYS 30 ML BLIST.PACK PO SCH (13:00)
[2023-11-16 11:51] LABS: HEMATOCRIT 24.2 % (36.0-45.00); HEMOGLOBIN 8.2 g/dL (12.0-15.00); MEAN CELL VOLUME 84.3 fL (80.00-100.00); MEAN CORPUSCULAR HEMOGLOBIN 28.4 pg (27.00-32.0); PLATELET COUNT 194 K/uL (150-450); RED BLOOD COUNT 2.88 M/uL (4.00-6.00); RED CELL DISTRIBUTION WIDTH 14.1 % (11.5-14.5)
[2023-11-17 04:20] LABS: HEMATOCRIT 31.9 % (36.0-45.00); HEMOGLOBIN 10.7 g/dL (12.0-15.00); MEAN CELL VOLUME 86.4 fL (80.00-100.00); MEAN CORPUSCULAR HEMOGLOBIN 28.9 pg (27.00-32.0); MEAN CORPUSCULAR HGB CONC 33.5 g/dl (32.0-36.0); PLATELET COUNT 216 K/uL (150-450); RED BLOOD COUNT 3.69 M/uL (4.00-6.00); RED CELL DISTRIBUTION WIDTH 14.8 % (11.5-14.5)
[2023-11-17] MEDS ORDERED: LACTOBACILLUS ACIDOPHILUS 1 CAP CAP PO SCH (09:00)
[2023-11-17] MEDS ORDERED: PANTOPRAZOLE SODIUM 40 MG TABLET.DR PO SCH (09:00)
[2023-11-17] MEDS ORDERED: SOD FERRIC GLUC COMPLX/SUCROSE 62.5 MG in 0.9 % SODIUM CHLORIDE 50 ML IV SCH (09:00)
[2023-11-17] MEDS ORDERED: ALTEPLASE 2 MG VIAL SPEPROC ONE (17:00)
[2023-11-17] MEDS ORDERED: ORPHENADRINE CITRATE 30 MG/ML AMPUL IV SCH (21:00)
[2023-11-18] MEDS ORDERED: AMLODIPINE BESYLATE 5 MG TABLET PO ONE (13:45)
[2023-11-19 06:43] LABS: HEMATOCRIT 31.1 % (36.0-45.00); HEMOGLOBIN 10.5 g/dL (12.0-15.00); MEAN CELL VOLUME 86.4 fL (80.00-100.00); MEAN CORPUSCULAR HEMOGLOBIN 29.2 pg (27.00-32.0); MEAN CORPUSCULAR HGB CONC 33.8 g/dl (32.0-36.0); PLATELET COUNT 215 K/uL (150-450); RED CELL DISTRIBUTION WIDTH 14.9 % (11.5-14.5)
[2023-11-19 07:03] LABS: ALBUMIN 2.1 gm/dL (3.4-5.0); BILIRUBIN TOTAL 0.47 mg/dL (0.3-1.2); CALCIUM 7.9 mg/dL (8.5-10.1); CREATININE SERUM 2.91 mg/dL (0.55-1.02); GFR 15.93; GLOBULINA 3.5 G/DL (2.4-3.5); MAGNESIUM 1.7 mg/dL (1.8-2.4); PHOSPHOROUS 4.5 mg/dL (2.5-4.9); POTASSIUM 4.24 mEq/L (3.5-5.1); TOTAL PROTEIN 5.6 gm/dL (6.4-8.2)
[2023-11-19] MEDS ORDERED: AMLODIPINE BESYLATE 10 MG TABLET PO SCH (09:00)
[2023-11-19] MEDS ORDERED: SODIUM CHLORIDE 0.45 % 1,000 ML IV SCH (11:45)
[2023-11-19] MEDS ORDERED: MAGNESIUM SULFATE IN WATER 50 ML IV ONE (16:00)
[2023-11-19] MEDS ORDERED: Cyanocobalamin/Mecobalamin 1 TAB.SL SL SCH (18:23)
[2023-11-20] MEDS ORDERED: SOD FERRIC GLUC COMPLX/SUCROSE 62.5 MG/5 ML AMPUL IV SCH (09:00)
[2023-11-20] MEDS ORDERED: ENOXAPARIN SODIUM 80 MG/0.8 ML SYRINGE SUBCUTANEO SCH (09:00)
[2023-11-20] MEDS ORDERED: EPOETIN ALFA-EPBX 10,000 UNIT/ML 2ML VIAL SUBCUTANEO SCH (17:00)
[2023-11-22 07:08] LABS: ALBUMIN 2.2 gm/dL (3.4-5.0); BILIRUBIN TOTAL 0.36 mg/dL (0.3-1.2); CALCIUM 7.8 mg/dL (8.5-10.1); GFR 11.04; GLOBULINA 3.5 G/DL (2.4-3.5); POTASSIUM 4.45 mEq/L (3.5-5.1); TOTAL PROTEIN 5.7 gm/dL (6.4-8.2)
[2023-11-23 05:19] LABS: HEMATOCRIT 30.6 % (36.0-45.00); MEAN CELL VOLUME 87.2 fL (80.00-100.00); MEAN CORPUSCULAR HGB CONC 34.1 g/dl (32.0-36.0); PLATELET COUNT 180 K/uL (150-450); RED BLOOD COUNT 3.51 M/uL (4.00-6.00); RED CELL DISTRIBUTION WIDTH 14.8 % (11.5-14.5)
[2023-11-23 05:26] LABS: HEMOGLOBIN 10.4 g/dL (12.0-15.00); MEAN CORPUSCULAR HEMOGLOBIN 29.6 pg (27.00-32.0)
[2023-11-23 05:51] LABS: ALBUMIN 2.4 gm/dL (3.4-5.0); BILIRUBIN TOTAL 0.31 mg/dL (0.3-1.2); CREATININE SERUM 2.97 mg/dL (0.55-1.02); GFR 15.56; GLOBULINA 3.8 G/DL (2.4-3.5); POTASSIUM 4.34 mEq/L (3.5-5.1); TOTAL PROTEIN 6.2 gm/dL (6.4-8.2)
[2023-11-23] MEDS ORDERED: VANCOMYCIN HCL1 GM PO (17:31)
[2023-11-23] MEDS ORDERED: AMLODIPINE BESY10 MG PO (17:31)
[2023-11-23] MEDS ORDERED: GABAPENTIN300 MG PO (17:32)
[2023-11-23] MEDS ORDERED: CARVEDILOL3.125 MG PO (17:32)
[2023-11-23] MEDS ORDERED: CRESTOR10 MG PO (17:32)
[2023-11-23] MEDS ORDERED: SERTRALINE HCL50 MG PO (17:33)
[2023-11-23] MEDS ORDERED: PANTOPRAZOLE SO40 MG PO (17:34)
[2023-11-23] MEDS ORDERED: LEVOTHYROXINE88 MCG PO (17:34)
[2023-11-23] MEDS ORDERED: INTESTINEX680 M1 PO (17:34)
[2023-11-23] MEDS ORDERED: PROTEINEX-18 LI30 ML PO (17:38)
[2023-11-23] MEDS ORDERED: Neurin-Sl Tablet Sl SL (17:39)
[2023-11-23] MEDS ORDERED: ELIQUIS2.5 MG PO (18:04)
== END 2023-11-23 18:58 | disposition home or self-care (01) | DRG 326 ==
LOC: ER 19:42 → MEDJ 11-04 11:37 → MEDI 11-04 11:37 → SEC-K 11-04 11:37 → MEDI 11-04 12:12 → MEDJ 11-05 17:59 → MEDI 11-05 23:21 → MEDJ 11-09 21:19
PROVIDERS: General Practice; Internal Medicine; Internal Medicine Hematology & Oncology; Internal Medicine Infectious Disease; Internal Medicine Nephrology; Surgery; ADMIT Internal Medicine; ATTEND Internal Medicine
PROC: BW40ZZZ Ultrasonography of Abdomen (ICD-10-PCS; 2023-11-04)
PROC: BW21ZZZ Computerized Tomography (CT Scan) of Abdomen and Pelvis (ICD-10-PCS; 2023-11-05)
PROC: B246ZZZ Ultrasonography of Right and Left Heart (ICD-10-PCS; 2023-11-05)
PROC: 02HV33Z Insertion of Infusion Device into Superior Vena Cava, Percutaneous Approach (ICD-10-PCS; 2023-11-05)
PROC: 0DU607Z Supplement Stomach with Autologous Tissue Substitute, Open Approach (ICD-10-PCS; 2023-11-05)
PROC: 0DQ60ZZ Repair Stomach, Open Approach (ICD-10-PCS; principal; 2023-11-05 20:00)
PROC: 30233N1 Transfusion of Nonautologous Red Blood Cells into Peripheral Vein, Percutaneous Approach (ICD-10-PCS; 2023-11-06)
PROC: 05HM33Z Insertion of Infusion Device into Right Internal Jugular Vein, Percutaneous Approach (ICD-10-PCS; 2023-11-11)
PROC: BP48ZZZ Ultrasonography of Right Shoulder (ICD-10-PCS; 2023-11-12)
PROC: 5A1D70Z Performance of Urinary Filtration, Intermittent, Less than 6 Hours Per Day (ICD-10-PCS; 2023-11-12)
PROC: 0W9G0ZZ Drainage of Peritoneal Cavity, Open Approach (ICD-10-PCS; 2023-11-15)
PROC: 5A1D70Z Performance of Urinary Filtration, Intermittent, Less than 6 Hours Per Day (ICD-10-PCS; 2023-11-15)
PROC: B54MZZZ Ultrasonography of Right Upper Extremity Veins (ICD-10-PCS; 2023-11-17)
PROC: 5A1D70Z Performance of Urinary Filtration, Intermittent, Less than 6 Hours Per Day (ICD-10-PCS; 2023-11-17)
PROC: 5A1D70Z Performance of Urinary Filtration, Intermittent, Less than 6 Hours Per Day (ICD-10-PCS; 2023-11-19)
PROC: 5A1D70Z Performance of Urinary Filtration, Intermittent, Less than 6 Hours Per Day (ICD-10-PCS; 2023-11-22)
DX: K25.1 Acute gastric ulcer with perforation (principal); K75.0 Abscess of liver; K57.92 Diverticulitis of intestine, part unspecified, without perforation or abscess without bleeding; N17.8 Other acute kidney failure; K52.9 Noninfective gastroenteritis and colitis, unspecified; K80.20 Calculus of gallbladder without cholecystitis without obstruction; E03.8 Other specified hypothyroidism; E78.5 Hyperlipidemia, unspecified; E86.0 Dehydration; N18.32 Chronic kidney disease, stage 3b; I73.9 Peripheral vascular disease, unspecified; Z99.2 Dependence on renal dialysis; I12.9 Hypertensive chronic kidney disease with stage 1 through stage 4 chronic kidney disease, or unspecified chronic kidney disease

== ENCOUNTER 2023-12-10 08:34 | Outpatient (CLI) | payer OTHER ==
[~2023-12-10 08:34] MED LIST changes: +AMLODIPINE BESY10 MG PO; +CARVEDILOL12.5 MG; +CARVEDILOL3.125 MG PO; +ELIQUIS2.5 MG PO; +GABAPENTIN300 MG PO; +INTESTINEX680 M1 PO; +LEVOTHYROXINE88 MCG PO; +Neurin-Sl Tablet Sl SL; +PANTOPRAZOLE SO40 MG PO; +PROTEINEX-18 LI30 ML PO; +SERTRALINE HCL50 MG PO; +VANCOMYCIN HCL1 GM PO
== END 2023-12-10 08:37 | disposition home or self-care (01) ==
LOC: MRI 08:34
PROVIDERS: ATTEND Internal Medicine
DX: L03.116 Cellulitis of left lower limb (principal)
CPT/HCPCS: 73718

== ENCOUNTER 2023-12-19 10:35 | Inpatient (IN) | payer OTHER ==
[~2023-12-19] VITALS: Ht 165.1 cm; Wt 83.0 kg
[2023-12-19 12:50] LABS: HEMATOCRIT 33.1 % (36.0-45.00); HEMOGLOBIN 11.1 g/dL (12.0-15.00); MEAN CORPUSCULAR HEMOGLOBIN 28.9 pg (27.00-32.0); MEAN CORPUSCULAR HGB CONC 33.6 g/dl (32.0-36.0); PLATELET COUNT 212 K/uL (150-450); RED BLOOD COUNT 3.85 M/uL (4.00-6.00)
[2023-12-19 13:13] LABS: ALBUMIN 2.6 gm/dL (3.4-5.0); BILIRUBIN TOTAL 0.9 mg/dL (0.3-1.2); CALCIUM 8.6 mg/dL (8.5-10.1); GLOBULINA 5.3 G/DL (2.4-3.5); TOTAL PROTEIN 7.9 gm/dL (6.4-8.2)
[2023-12-19 13:36] LABS: GFR 8.96
[2023-12-19 13:39] LABS: CREATININE SERUM 4.79 mg/dL (0.55-1.02); POTASSIUM 2.88 mEq/L (3.5-5.1)
[2023-12-19 13:41] LABS: ERYTHROCYTE SEDIMENTATION RATE 121 mm/hr
[2023-12-19] MEDS ORDERED: POTASSIUM BICARBONATE/CIT AC 25 MEQ TABLET.EFF PO SCH (14:14)
[2023-12-19] MEDS ORDERED: CEFTRIAXONE SODIUM 1,000 MG VIAL IV SCH (14:33)
[2023-12-19] MEDS ORDERED: VANCOMYCIN HCL 1,000 MG VIAL IV ONE (14:45)
[2023-12-19] MEDS ORDERED: 0.9 % SODIUM CHLORIDE 1,000 ML IV SCH (18:45)
[2023-12-19] MEDS ORDERED: ONDANSETRON HCL 4 MG in 0.9 % SODIUM CHLORIDE 50 ML IV PRN (19:00)
[2023-12-19] MEDS ORDERED: ACETAMINOPHEN 500 MG GEL..CAP PO PRN (19:00)
[2023-12-19] MEDS ORDERED: CARVEDILOL 3.125 MG TABLET PO SCH (21:00)
[2023-12-19 21:13] LABS: INR 1.48; PARTIAL THROMBOPLASTIN TIME 33.9 SECONDS (22.0-34.0)
[2023-12-19 21:15] LABS: PROTHROMBIN TIME 15.1 SECONDS (9.0-11.5)
[2023-12-20] MEDS ORDERED: MAGNESIUM SULFATE IN WATER 2 GM/50 ML PIGGYBAG IV ONE (06:00)
[2023-12-20] MEDS ORDERED: LEVOTHYROXINE SODIUM 88 MCG TABLET PO SCH (06:00)
[2023-12-20] MEDS ORDERED: AMINO ACIDS/PROTEIN HYDROLYS 30 ML BLIST.PACK PO SCH (09:00)
[2023-12-20] MEDS ORDERED: SERTRALINE HCL 50 MG TABLET PO SCH (09:00)
[2023-12-20] MEDS ORDERED: AMLODIPINE BESYLATE 10 MG TABLET PO SCH (09:00)
[2023-12-20] MEDS ORDERED: PANTOPRAZOLE SODIUM 40 MG/VIAL VIAL IV SCH (09:00)
[2023-12-20] MEDS ORDERED: ENOXAPARIN SODIUM 30 MG/0.3 ML SYRINGE SUBCUTANEO SCH (09:00)
[2023-12-20 11:32] LABS: PH,URINE 6.5 (5.0-8.0); URINE APPEARANCE Clear; URINE BILIRRUBIN Negative (NEGATIVE); URINE BLOOD Small; URINE COLOR Dark Yellow; URINE LEUKOCYTE Trace; URINE NITRATE Negative
[2023-12-20 11:37] LABS: URINE BACTERIA 80.6 uL (0.0-1933); URINE EPITHELIAL CELLS 14.2 uL (0.0-38.8); URINE RBC 4.7 uL (0.0-20.8); URINE WBC 4.6 uL (0.0-23.2)
[2023-12-20 11:44] LABS: URINE GLUCOSE 100 MG/DL (NEGATIVE); URINE PROTEIN >=1000 (NEGATIVE)
[2023-12-20] MEDS ORDERED: APIXABAN 2.5 MG TABLET PO SCH (17:27)
[2023-12-20] MEDS ORDERED: VANCOMYCIN HCL 500 MG VIAL IV SCH (18:02)
[2023-12-21 08:13] LABS: HEMATOCRIT 27.5 % (36.0-45.00); HEMOGLOBIN 9.4 g/dL (12.0-15.00); MEAN CELL VOLUME 86.1 fL (80.00-100.00); MEAN CORPUSCULAR HEMOGLOBIN 29.5 pg (27.00-32.0); MEAN CORPUSCULAR HGB CONC 34.3 g/dl (32.0-36.0); PLATELET COUNT 146 K/uL (150-450); RED BLOOD COUNT 3.19 M/uL (4.00-6.00); RED CELL DISTRIBUTION WIDTH 14.8 % (11.5-14.5)
[2023-12-21] MEDS ORDERED: CEFTRIAXONE SODIUM 2,000 MG VIAL IV SCH (09:00)
[2023-12-21 09:12] LABS: BILIRUBIN TOTAL 0.43 mg/dL (0.3-1.2); PHOSPHOROUS 4.5 mg/dL (2.5-4.9); POTASSIUM 3.46 mEq/L (3.5-5.1)
[2023-12-21 09:42] LABS: GFR 10.1
[2023-12-21 09:43] LABS: C-REACTIVE PROTEIN 31.1 MG/DL (0.00-0.29); CREATININE SERUM 4.32 mg/dL (0.55-1.02)
[2023-12-22 06:39] LABS: HEMATOCRIT 26.9 % (36.0-45.00); MEAN CELL VOLUME 87.2 fL (80.00-100.00); MEAN CORPUSCULAR HEMOGLOBIN 29.2 pg (27.00-32.0); MEAN CORPUSCULAR HGB CONC 33.5 g/dl (32.0-36.0); PLATELET COUNT 144 K/uL (150-450); RED BLOOD COUNT 3.09 M/uL (4.00-6.00); RED CELL DISTRIBUTION WIDTH 14.5 % (11.5-14.5)
[2023-12-22] MEDS ORDERED: ENOXAPARIN SODIUM 30 MG/0.3 ML SYRINGE SUBCUTANEO SCH (09:00)
[2023-12-22] MEDS ORDERED: EPOETIN ALFA-EPBX 10,000 UNIT/ML 2ML VIAL SUBCUTANEO SCH (12:00)
[2023-12-22] MEDS ORDERED: METRONIDAZOLE/SODIUM CHLORIDE 500 MG/100 ML PIGGYBACK IV SCH (17:00)
[2023-12-22] MEDS ORDERED: VANCOMYCIN HCL 125 MG/7.5 ML BLIST.PACK PO SCH (18:00)
[2023-12-23] MEDS ORDERED: PANTOPRAZOLE SODIUM 40 MG TABLET.DR PO SCH (09:00)
[2023-12-23 12:18] LABS: HEMOGLOBIN 10.1 g/dL (12.0-15.00); MEAN CELL VOLUME 86.9 fL (80.00-100.00); MEAN CORPUSCULAR HEMOGLOBIN 29.3 pg (27.00-32.0); MEAN CORPUSCULAR HGB CONC 33.7 g/dl (32.0-36.0); PLATELET COUNT 188 K/uL (150-450); RED BLOOD COUNT 3.46 M/uL (4.00-6.00); RED CELL DISTRIBUTION WIDTH 14.7 % (11.5-14.5)
[2023-12-26 06:34] LABS: HEMATOCRIT 27.6 % (36.0-45.00); HEMOGLOBIN 9.2 g/dL (12.0-15.00); MEAN CELL VOLUME 87.6 fL (80.00-100.00); MEAN CORPUSCULAR HEMOGLOBIN 29.1 pg (27.00-32.0); MEAN CORPUSCULAR HGB CONC 33.2 g/dl (32.0-36.0); PLATELET COUNT 232 K/uL (150-450); RED BLOOD COUNT 3.15 M/uL (4.00-6.00); RED CELL DISTRIBUTION WIDTH 15.1 % (11.5-14.5)
[2023-12-26 07:36] LABS: CALCIUM 7.8 mg/dL (8.5-10.1); GFR 9.03; MAGNESIUM 1.8 mg/dL (1.8-2.4); PHOSPHOROUS 4.9 mg/dL (2.5-4.9); POTASSIUM 3.37 mEq/L (3.5-5.1)
[2023-12-26 07:47] LABS: CREATININE SERUM 4.76 mg/dL (0.55-1.02)
[2023-12-26] MEDS ORDERED: LACTOBACILLUS ACIDOPHILUS 1 CAP CAP PO SCH (17:00)
[2023-12-27 05:31] LABS: HEMATOCRIT 27.1 % (36.0-45.00); HEMOGLOBIN 9.3 g/dL (12.0-15.00); MEAN CELL VOLUME 87.2 fL (80.00-100.00); MEAN CORPUSCULAR HEMOGLOBIN 29.9 pg (27.00-32.0); MEAN CORPUSCULAR HGB CONC 34.3 g/dl (32.0-36.0); PLATELET COUNT 233 K/uL (150-450); RED BLOOD COUNT 3.11 M/uL (4.00-6.00); RED CELL DISTRIBUTION WIDTH 14.9 % (11.5-14.5)
[2023-12-27 06:03] LABS: ALBUMIN 2.1 gm/dL (3.4-5.0); BILIRUBIN TOTAL 0.35 mg/dL (0.3-1.2); CALCIUM 7.7 mg/dL (8.5-10.1); GFR 8.73; GLOBULINA 4.1 G/DL (2.4-3.5); POTASSIUM 3.52 mEq/L (3.5-5.1); TOTAL PROTEIN 6.2 gm/dL (6.4-8.2)
[2023-12-27 07:21] LABS: CREATININE SERUM 4.9 mg/dL (0.55-1.02)
[2023-12-27] MEDS ORDERED: DIATRIZOATE MEGLUMINE, SODIUM 30 ML BOTTLE PO ONE (08:00)
[2023-12-28 07:01] LABS: ALBUMIN 2.2 gm/dL (3.4-5.0); BILIRUBIN TOTAL 0.4 mg/dL (0.3-1.2); BILIRUBIN,CONJUGATED 0.12 mg/dL (0.0-0.2); BILIRUBIN,UNCONJUGATED 0.28 mg/dL (0.0-0.6); TOTAL PROTEIN 6.6 gm/dL (6.4-8.2)
[2023-12-30 08:49] LABS: HEMATOCRIT 30.5 % (36.0-45.00); HEMOGLOBIN 10.4 g/dL (12.0-15.00); MEAN CELL VOLUME 86.4 fL (80.00-100.00); MEAN CORPUSCULAR HEMOGLOBIN 29.4 pg (27.00-32.0); PLATELET COUNT 292 K/uL (150-450); RED BLOOD COUNT 3.53 M/uL (4.00-6.00); RED CELL DISTRIBUTION WIDTH 15.5 % (11.5-14.5)
[2023-12-30 09:03] LABS: ERYTHROCYTE SEDIMENTATION RATE > 130 mm/hr
[2023-12-30 09:28] LABS: ALBUMIN 2.3 gm/dL (3.4-5.0); BILIRUBIN TOTAL 0.51 mg/dL (0.3-1.2); CALCIUM 8.7 mg/dL (8.5-10.1); CREATININE SERUM 3.24 mg/dL (0.55-1.02); GFR 14.08; GLOBULINA 4.8 G/DL (2.4-3.5); MAGNESIUM 1.8 mg/dL (1.8-2.4); POTASSIUM 3.28 mEq/L (3.5-5.1); TOTAL PROTEIN 7.1 gm/dL (6.4-8.2)
[2023-12-30 09:56] LABS: C-REACTIVE PROTEIN 14.6 MG/DL (0.00-0.29)
[2023-12-30 09:57] LABS: TSH 7.21 uIU/mL (0.358-3.74)
[2023-12-30] MEDS ORDERED: LOPERAMIDE HCL 2 MG CAPSULE PO SCH (10:42)
[2023-12-30] MEDS ORDERED: METHYLPREDNISOLONE SOD SUCC 40 MG VIAL IV SCH ×2 (15:02→17:00)
[2023-12-31] MEDS ORDERED: SYNTHROID100 MCG PO (14:09)
[2023-12-31] MEDS ORDERED: INTESTINEX680 M1 PO (14:10)
[2023-12-31] MEDS ORDERED: PROTONIX40 MG PO (14:11)
[2023-12-31] MEDS ORDERED: PROTEINEX-18 LI30 ML PO (14:13)
== END 2023-12-31 16:04 | disposition home or self-care (01) | DRG 871 ==
LOC: ER 10:35 → MEDI 19:14
PROVIDERS: General Practice; Internal Medicine Infectious Disease; Internal Medicine Nephrology; ADMIT Internal Medicine; ATTEND Internal Medicine
PROC: 5A1D70Z Performance of Urinary Filtration, Intermittent, Less than 6 Hours Per Day (ICD-10-PCS; 2023-12-20)
PROC: B54MZZZ Ultrasonography of Right Upper Extremity Veins (ICD-10-PCS; principal; 2023-12-21)
PROC: 5A1D70Z Performance of Urinary Filtration, Intermittent, Less than 6 Hours Per Day (ICD-10-PCS; 2023-12-22)
PROC: B24BZZZ Ultrasonography of Heart with Aorta (ICD-10-PCS; 2023-12-23)
PROC: 5A1D70Z Performance of Urinary Filtration, Intermittent, Less than 6 Hours Per Day (ICD-10-PCS; 2023-12-24)
PROC: BW21YZZ Computerized Tomography (CT Scan) of Abdomen and Pelvis using Other Contrast (ICD-10-PCS; 2023-12-27)
PROC: BW40ZZZ Ultrasonography of Abdomen (ICD-10-PCS; 2023-12-28)
PROC: 5A1D70Z Performance of Urinary Filtration, Intermittent, Less than 6 Hours Per Day (ICD-10-PCS; 2023-12-29)
PROC: 5A1D70Z Performance of Urinary Filtration, Intermittent, Less than 6 Hours Per Day (ICD-10-PCS; 2023-12-31)
DX: A41.9 Sepsis, unspecified organism (principal); N18.6 End stage renal disease; L03.113 Cellulitis of right upper limb; A04.72 Enterocolitis due to Clostridium difficile, not specified as recurrent; D63.1 Anemia in chronic kidney disease; K80.20 Calculus of gallbladder without cholecystitis without obstruction; E03.9 Hypothyroidism, unspecified; Z99.2 Dependence on renal dialysis; Z86.718 Personal history of other venous thrombosis and embolism; E21.3 Hyperparathyroidism, unspecified; K25.9 Gastric ulcer, unspecified as acute or chronic, without hemorrhage or perforation

== ENCOUNTER 2024-05-30 08:59 | Outpatient (CLI) | payer OTHER ==
[~2024-05-30 08:59] MED LIST changes: +PROTONIX40 MG PO; +SYNTHROID100 MCG PO
[2024-05-30 09:46] LABS: HEMATOCRIT 33.1 % (36.0-45.00); MEAN CELL VOLUME 86.7 fL (80.00-100.00); MEAN CORPUSCULAR HEMOGLOBIN 28.9 pg (27.00-32.0); MEAN CORPUSCULAR HGB CONC 33.3 g/dl (32.0-36.0); PLATELET COUNT 329 K/uL (150-450); RED BLOOD COUNT 3.82 M/uL (4.00-6.00); RED CELL DISTRIBUTION WIDTH 14.7 % (11.5-14.5)
[2024-05-30 09:55] LABS: ERYTHROCYTE SEDIMENTATION RATE 91 mm/hr
[2024-05-30 10:31] LABS: ALBUMIN 3.3 gm/dL (3.4-5.0); BILIRUBIN TOTAL 0.47 mg/dL (0.3-1.2); CALCIUM 9.3 mg/dL (8.5-10.1); CHOL HDL RATIO 2.8 (0-5.0); FREE TRIODOTIRONINE 2.31 pg/ml (2.18-3.98); GLOBULINA 4.9 G/DL (2.4-3.5); POTASSIUM 4.45 mEq/L (3.5-5.1); T4 TOTAL 9.08 UG/DL (4.8-13.9); TOTAL PROTEIN 8.2 gm/dL (6.4-8.2); TSH 1.89 uIU/mL (0.358-3.74)
[2024-05-30 10:52] LABS: GFR 8.92
[2024-05-30 10:53] LABS: C-REACTIVE PROTEIN 1.87 MG/DL (0.00-0.29); CREATININE SERUM 4.81 mg/dL (0.55-1.02)
== END 2024-05-30 09:00 | disposition home or self-care (01) ==
LOC: LAB 08:59
PROVIDERS: ATTEND Internal Medicine
DX: E21.3 Hyperparathyroidism, unspecified (principal); K80.20 Calculus of gallbladder without cholecystitis without obstruction; E11.9 Type 2 diabetes mellitus without complications; I10 Essential (primary) hypertension; Z86.19 Personal history of other infectious and parasitic diseases; E03.9 Hypothyroidism, unspecified; K51.90 Ulcerative colitis, unspecified, without complications; N18.30 Chronic kidney disease, stage 3 unspecified

== ENCOUNTER 2024-07-13 11:44 | Outpatient (CLI) | payer OTHER ==
[2024-07-13 12:52] LABS: HEMATOCRIT 35.5 % (36.0-45.00); MEAN CELL VOLUME 87.8 fL (80.00-100.00); MEAN CORPUSCULAR HEMOGLOBIN 29.7 pg (27.00-32.0); MEAN CORPUSCULAR HGB CONC 33.8 g/dl (32.0-36.0); PLATELET COUNT 305 K/uL (150-450); RED BLOOD COUNT 4.04 M/uL (4.00-6.00); RED CELL DISTRIBUTION WIDTH 15.3 % (11.5-14.5)
[2024-07-13 13:28] LABS: BILIRUBIN TOTAL 0.46 mg/dL (0.3-1.2); CALCIUM 8.7 mg/dL (8.5-10.1); GFR 9.19; GLOBULINA 4.6 G/DL (2.4-3.5); POTASSIUM 3.78 mEq/L (3.5-5.1); TOTAL PROTEIN 7.6 gm/dL (6.4-8.2); TSH 1.07 uIU/mL (0.358-3.74)
[2024-07-13 14:21] LABS: CREATININE SERUM 4.69 mg/dL (0.55-1.02)
== END 2024-07-13 11:46 | disposition home or self-care (01) ==
LOC: LAB 11:44
PROVIDERS: ATTEND Internal Medicine
DX: K80.20 Calculus of gallbladder without cholecystitis without obstruction (principal); N18.4 Chronic kidney disease, stage 4 (severe); K51.90 Ulcerative colitis, unspecified, without complications

== ENCOUNTER 2024-08-07 15:24 | Emergency (ER) | payer OTHER ==
[~2024-08-07] VITALS: Ht 165.1 cm; Wt 75.3 kg
[2024-08-07] MEDS ORDERED: CEFTRIAXONE SODIUM 1,000 MG VIAL IM STA (19:02)
[2024-08-07] MEDS ORDERED: KETOROLAC TROMETHAMINE 30 MG VIAL IM STA (19:02)
== END 2024-08-07 21:08 | disposition home or self-care (01) ==
LOC: ER 15:26
DX: K11.8 Other diseases of salivary glands (principal)
CPT/HCPCS: 96372; 99282; J0696; J1885

== ENCOUNTER → 2024-08-29 12:09 | Outpatient (CLI) | payer OTHER ==
[2024-08-29 13:10] LABS: HEMATOCRIT 35.3 % (36.0-45.00); MEAN CELL VOLUME 87.2 fL (80.00-100.00); MEAN CORPUSCULAR HEMOGLOBIN 29.8 pg (27.00-32.0); MEAN CORPUSCULAR HGB CONC 34.2 g/dl (32.0-36.0); PLATELET COUNT 240 K/uL (150-450); RED BLOOD COUNT 4.04 M/uL (4.00-6.00)
[2024-08-29 13:15] LABS: ERYTHROCYTE SEDIMENTATION RATE 61 mm/hr
[2024-08-29 13:56] LABS: ALBUMIN 3.5 gm/dL (3.4-5.0); BILIRUBIN TOTAL 0.79 mg/dL (0.3-1.2); CHOL HDL RATIO 3.2 (0-5.0); FREE TRIODOTIRONINE 2.13 pg/ml (2.18-3.98); GLOBULINA 4.5 G/DL (2.4-3.5); POTASSIUM 4.6 mEq/L (3.5-5.1); T4 TOTAL 7.76 UG/DL (4.8-13.9); TSH 0.468 uIU/mL (0.358-3.74)
[2024-08-29 14:22] LABS: C-REACTIVE PROTEIN 3.96 MG/DL (0.00-0.29); GFR 5.92
[2024-08-29 14:24] LABS: CREATININE SERUM 6.85 mg/dL (0.55-1.02)
== END | disposition home or self-care (01) ==
LOC: LAB 12:09
PROVIDERS: ATTEND Internal Medicine
DX: E03.9 Hypothyroidism, unspecified (principal); I10 Essential (primary) hypertension; Z12.11 Encounter for screening for malignant neoplasm of colon; E11.9 Type 2 diabetes mellitus without complications; E55.9 Vitamin D deficiency, unspecified; K80.20 Calculus of gallbladder without cholecystitis without obstruction

== ENCOUNTER 2024-11-30 09:23 | Outpatient (CLI) | payer OTHER ==
[2024-11-30 10:02] LABS: HEMATOCRIT 40.1 % (36.0-45.00); HEMOGLOBIN 13.5 g/dL (12.0-15.00); MEAN CELL VOLUME 89.1 fL (80.00-100.00); MEAN CORPUSCULAR HEMOGLOBIN 29.9 pg (27.00-32.0); MEAN CORPUSCULAR HGB CONC 33.6 g/dl (32.0-36.0); PLATELET COUNT 245 K/uL (150-450); RED CELL DISTRIBUTION WIDTH 13.8 % (11.5-14.5)
[2024-11-30 10:02] LABS: URINE CAST 5.89 uL (0.0-1.40); URINE RBC 14.5 uL (0.0-20.8)
[2024-11-30 10:05] LABS: PH,URINE 5.5; URINE BLOOD TRACE; URINE GLUCOSE NEGATIVE (NEGATIVE); URINE KETONE TRACE (NEGATIVE); URINE LEUKOCYTE SMALL; URINE NITRATE NEGATIVE; URINE UROBILINOGEN 0.2 E.U./dl
[2024-11-30 10:16] LABS: ERYTHROCYTE SEDIMENTATION RATE 43 mm/hr
[2024-11-30 10:26] LABS: URINE BACTERIA > 9821.5 uL (0.0-1933); URINE EPITHELIAL CELLS > 201.7 uL (0.0-38.8)
[2024-11-30 10:27] LABS: URINE APPEARANCE SL CLOUDY; URINE BILIRRUBIN MODERATE (NEGATIVE); URINE COLOR YELLOW; URINE PROTEIN 100 (NEGATIVE)
[2024-11-30 11:30] LABS: ALBUMIN 3.6 gm/dL (3.4-5.0); BILIRUBIN TOTAL 0.46 mg/dL (0.3-1.2); CALCIUM 9.4 mg/dL (8.5-10.1); CHOL HDL RATIO 3.4 (0-5.0); GLOBULINA 4.4 G/DL (2.4-3.5); POTASSIUM 4.36 mEq/L (3.5-5.1)
[2024-11-30 11:55] LABS: GFR 5.76
[2024-11-30 11:56] LABS: C-REACTIVE PROTEIN 0.8 MG/DL (0.00-0.29); CREATININE SERUM 7.01 mg/dL (0.55-1.02)
[2024-11-30 12:02] LABS: FREE TRIODOTIRONINE 2.27 pg/ml (2.18-3.98); T4 TOTAL 7.7 UG/DL (4.8-13.9); TSH 1.73 uIU/mL (0.358-3.74)
== END 2024-11-30 09:30 | disposition home or self-care (01) ==
LOC: LAB 09:23
PROVIDERS: ATTEND Internal Medicine
DX: K80.20 Calculus of gallbladder without cholecystitis without obstruction (principal); E03.9 Hypothyroidism, unspecified; E55.9 Vitamin D deficiency, unspecified; I10 Essential (primary) hypertension; E11.9 Type 2 diabetes mellitus without complications; Z78.9 Other specified health status; Z12.11 Encounter for screening for malignant neoplasm of colon

== ENCOUNTER 2024-12-02 08:05 | Outpatient (CLI) | payer OTHER ==
[2024-12-02 09:06] LABS: PH,URINE 5.5 (5.0-8.0); URINE APPEARANCE Cloudy; URINE BILIRRUBIN Negative (NEGATIVE); URINE BLOOD Negative; URINE COLOR Yellow; URINE GLUCOSE Negative (NEGATIVE); URINE KETONE Trace (NEGATIVE); URINE LEUKOCYTE Small; URINE NITRATE Negative; URINE UROBILINOGEN 0.2 E.U./dl
[2024-12-02 09:10] LABS: URINE BACTERIA 1471.2 uL (0.0-1933); URINE CAST 2.35 uL (0.0-1.40); URINE EPITHELIAL CELLS 61.8 uL (0.0-38.8); URINE RBC 6.3 uL (0.0-20.8); URINE WBC 49.7 uL (0.0-23.2)
[2024-12-02 10:30] LABS: URINE PROTEIN 100 (NEGATIVE)
== END 2024-12-02 08:16 | disposition home or self-care (01) ==
LOC: LAB 08:05
PROVIDERS: ATTEND Internal Medicine
DX: K80.20 Calculus of gallbladder without cholecystitis without obstruction (principal); E03.9 Hypothyroidism, unspecified; E55.9 Vitamin D deficiency, unspecified; I10 Essential (primary) hypertension; E11.9 Type 2 diabetes mellitus without complications; Z78.9 Other specified health status; Z12.11 Encounter for screening for malignant neoplasm of colon

== ENCOUNTER 2025-03-08 07:28 | Outpatient (CLI) | payer OTHER ==
[2025-03-08 08:25] LABS: BASO % 0.8 % (0.1-1.2); HEMATOCRIT 39.3 % (34.1-44.9); HEMOGLOBIN 12.7 g/dL (11.2-15.7); LYMPH # 1.48 (1.18-3.74); LYMPH % 19.9 % (19.3-53.1); MEAN CORPUSCULAR HEMOGLOBIN 29.1 pg (25.6-32.2); MONO # 0.65 (0.24-0.82); MONO % 8.8 % (4.7-12.5); NEUT # 4.89 (1.56-6.13); PLATELET COUNT 231 K/uL (163-369); RED BLOOD COUNT 4.37 M/uL (3.93-5.22); RED CELL DISTRIBUTION WIDTH 12.8 % (11.6-14.4)
[2025-03-08 08:26] LABS: PH,URINE 8.5 (5.0-8.0); URINE APPEARANCE Clear; URINE BILIRRUBIN Negative (NEGATIVE); URINE BLOOD Negative; URINE COLOR Yellow; URINE GLUCOSE Negative (NEGATIVE); URINE KETONE Negative (NEGATIVE); URINE LEUKOCYTE Trace; URINE NITRATE Negative; URINE UROBILINOGEN 0.2 E.U./dl
[2025-03-08 08:31] LABS: URINE BACTERIA 963.2 uL (0.0-1933); URINE RBC 3.9 uL (0.0-20.8); URINE WBC 9.3 uL (0.0-23.2)
[2025-03-08 08:45] LABS: URINE CAST 1.32 uL (0.0-1.40); URINE PROTEIN 100 (NEGATIVE)
[2025-03-08 09:43] LABS: ALBUMIN 3.4 gm/dL (3.4-5.0); BILIRUBIN TOTAL 0.59 mg/dL (0.3-1.2); CALCIUM 9.4 mg/dL (8.5-10.1); CHOL HDL RATIO 2.7 (0-5.0); GLOBULINA 3.9 G/DL (2.4-3.5); POTASSIUM 4.5 mEq/L (3.5-5.1); T4 TOTAL 7.36 UG/DL (4.8-13.9); TOTAL PROTEIN 7.3 gm/dL (6.4-8.2); TSH 2.21 uIU/mL (0.358-3.74)
[2025-03-08 10:16] LABS: C-REACTIVE PROTEIN 0.82 MG/DL (0.00-0.29); GFR 6.41
[2025-03-08 10:18] LABS: CREATININE SERUM 6.39 mg/dL (0.55-1.02)
== END 2025-03-08 07:38 | disposition home or self-care (01) ==
LOC: LAB 07:28
PROVIDERS: ATTEND Internal Medicine
DX: K80.20 Calculus of gallbladder without cholecystitis without obstruction (principal); E03.9 Hypothyroidism, unspecified; E55.9 Vitamin D deficiency, unspecified; I10 Essential (primary) hypertension; E11.9 Type 2 diabetes mellitus without complications; Z78.9 Other specified health status; Z12.11 Encounter for screening for malignant neoplasm of colon

== ENCOUNTER 2025-03-20 13:58 | Outpatient (CLI) | payer OTHER | END 2025-03-20 14:06 | disposition home or self-care (01) | LOC: TOM 13:58 | PROVIDERS: ATTEND Internal Medicine | DX: C08.0 Malignant neoplasm of submandibular gland (principal) ==

== ENCOUNTER → 2025-04-19 08:29 | Outpatient (CLI) | payer OTHER | END | disposition home or self-care (01) | LOC: NUCLEAR 08:29 | PROVIDERS: ATTEND Internal Medicine | DX: K80.80 Other cholelithiasis without obstruction (principal); N18.5 Chronic kidney disease, stage 5 | CPT/HCPCS: 78227; A9537 ==

== ENCOUNTER 2025-05-03 06:12 | Outpatient (CLI) | payer OTHER ==
[2025-05-03 07:51] LABS: BASO % 0.4 % (0.1-1.2); EOS # 0.26 (0.04-0.54); EOS % 3.3 % (0.7-7.0); LYMPH # 1.83 (1.18-3.74); LYMPH % 23.0 % (19.3-53.1); MEAN PLATELET VOLUME 10.50 fl (9.4-12.4); MONO # 0.71 (0.24-0.82); MONO % 8.9 % (4.7-12.5); NEUT # 5.13 (1.56-6.13); NEUT % 64.3 % (34.0-71.1); RED CELL DISTRIBUTION WIDTH 13.5 % (11.6-14.4)
[2025-05-03 08:29] LABS: ALT/SGPT 19.0 U/L (12-78); AST/SGOT 16.0 U/L (15-37); BILIRUBIN TOTAL 0.69 mg/dL (0.3-1.2); BUN CREA RATIO 4.0 (7.0-25.0); GFR 6.05; GLOBULINA 3.6 G/DL (2.4-3.5); GLUCOSE FASTING 115.0 mg/dL (65-100); OSMOLALITY SERUM 289.0 MOSM/KG (275-295); T4 FREE 1.06 NG/ML (0.76-1.46); TSH 2.67 uIU/mL (0.358-3.74)
[2025-05-03 09:24] LABS: CREATININE SERUM 6.72 mg/dL (0.55-1.02)
== END 2025-05-03 06:24 | disposition home or self-care (01) ==
LOC: LAB 06:12
PROVIDERS: ATTEND Internal Medicine
DX: E03.8 Other specified hypothyroidism (principal); C73 Malignant neoplasm of thyroid gland; I10 Essential (primary) hypertension; E11.65 Type 2 diabetes mellitus with hyperglycemia

== ENCOUNTER 2025-05-22 10:14 | Outpatient (CLI) | payer OTHER | END 2025-05-22 10:18 | disposition home or self-care (01) | LOC: MAMO-SONO 10:14 | PROVIDERS: ATTEND Internal Medicine | DX: N64.4 Mastodynia (principal); Z12.31 Encounter for screening mammogram for malignant neoplasm of breast; Z12.39 Encounter for other screening for malignant neoplasm of breast ==

== ENCOUNTER → 2025-06-21 09:10 | Outpatient (CLI) | payer OTHER ==
[2025-06-21 09:51] LABS: BASO % 0.8 % (0.1-1.2); EOS # 0.28 (0.04-0.54); EOS % 3.6 % (0.7-7.0); LYMPH # 1.65 (1.18-3.74); LYMPH % 20.9 % (19.3-53.1); MEAN PLATELET VOLUME 10.10 fl (9.4-12.4); MONO # 0.68 (0.24-0.82); MONO % 8.6 % (4.7-12.5); NEUT # 5.18 (1.56-6.13); NEUT % 65.7 % (34.0-71.1); RED CELL DISTRIBUTION WIDTH 13.2 % (11.6-14.4)
[2025-06-21 11:26] LABS: ALT/SGPT 14.0 U/L (12-78); AST/SGOT 11.0 U/L (15-37); BILIRUBIN TOTAL 0.55 mg/dL (0.3-1.2); CHOL HDL RATIO 2.5 (0-5.0); FREE TRIODOTIRONINE 2.05 pg/ml (2.18-3.98); GLOBULINA 3.5 G/DL (2.4-3.5); GLUCOSE FASTING 103.0 mg/dL (65-100); HDL 62.0 mg/dl (40-60); LDL 76.0 mg/dl (0-130); OSMOLALITY SERUM 292.0 MOSM/KG (275-295); T4 TOTAL 7.21 UG/DL (4.8-13.9); TSH 1.48 uIU/mL (0.358-3.74); VLDL 17.0 (0-39)
[2025-06-21 11:28] LABS: BUN CREA RATIO 5.0 (7.0-25.0); GFR 5.03
[2025-06-21 11:32] LABS: CREATININE SERUM 7.88 mg/dL (0.55-1.02)
== END | disposition home or self-care (01) ==
LOC: LAB 09:10
PROVIDERS: ATTEND Internal Medicine
DX: K80.20 Calculus of gallbladder without cholecystitis without obstruction (principal); E03.9 Hypothyroidism, unspecified; E55.9 Vitamin D deficiency, unspecified; I10 Essential (primary) hypertension; E11.9 Type 2 diabetes mellitus without complications; Z78.9 Other specified health status; Z12.11 Encounter for screening for malignant neoplasm of colon

== ENCOUNTER → 2025-08-12 | Emergency (ER) | payer OTHER ==
[~2025-08-12] VITALS: Ht 165.1 cm; Wt 83.0 kg
[~2025-08-12] MED LIST changes: +ACETAMINOPHEN 500 MG GEL..CAP PO ONE; +CEFTRIAXONE SODIUM 1,000 MG in DEXTROSE 5 % IN WATER 100 ML IV ONE; +CRESTOR40 MG; +FAMOTIDINE/PF 20 MG/2 ML VIAL IV ONE; +MONDOXYNE NL100 MG PO; +ORPHENADRINE CITRATE 30 MG/ML AMPUL IM ONE; +PROTONIX40 MG
[2025-08-13 00:32] LABS: BASO % 0.4 % (0.1-1.2); EOS # 0.25 (0.04-0.54); EOS % 1.9 % (0.7-7.0); LYMPH # 2.27 (1.18-3.74); LYMPH % 17.6 % (19.3-53.1); MEAN PLATELET VOLUME 10.70 fl (9.4-12.4); MONO # 1.38 (0.24-0.82); MONO % 10.7 % (4.7-12.5); NEUT # 8.94 (1.56-6.13); NEUT % 69.1 % (34.0-71.1); RED CELL DISTRIBUTION WIDTH 13.2 % (11.6-14.4)
[2025-08-13 00:35] LABS: ERYTHROCYTE SEDIMENTATION RATE 80 mm/hr (0-30)
[2025-08-13 01:02] LABS: ALT/SGPT 18 U/L (12-78); AST/SGOT 16 U/L (15-37); GFR 3.53; GLUCOSE FASTING 105 mg/dL (65-100)
[2025-08-13 01:08] LABS: BILIRUBIN TOTAL 0.72 mg/dL (0.3-1.2); BUN CREA RATIO 9 (7.0-25.0); OSMOLALITY SERUM 302 MOSM/KG (275-295)
[2025-08-13 01:09] LABS: CREATININE SERUM 10.70 mg/dL (0.55-1.02)
== END | disposition home or self-care (01) ==
LOC: ER 21:15
PROVIDERS: General Practice
DX: L03.113 Cellulitis of right upper limb (principal); E03.8 Other specified hypothyroidism
CPT/HCPCS: 36415; 73090; 96365; 99283; J0696; J2360; J3490

== ENCOUNTER 2025-08-15 07:36 | Outpatient (CLI) | payer OTHER ==
[~2025-08-15 07:36] MED LIST changes: -ACETAMINOPHEN 500 MG GEL..CAP PO ONE; -CEFTRIAXONE SODIUM 1,000 MG in DEXTROSE 5 % IN WATER 100 ML IV ONE; -FAMOTIDINE/PF 20 MG/2 ML VIAL IV ONE; -ORPHENADRINE CITRATE 30 MG/ML AMPUL IM ONE
== END 2025-08-15 07:37 | disposition home or self-care (01) ==
LOC: NUCLEAR 07:36
PROVIDERS: ATTEND Internal Medicine
DX: M79.601 Pain in right arm (principal)

== ENCOUNTER 2025-09-27 06:07 | Outpatient (CLI) | payer OTHER ==
[2025-09-27 07:34] LABS: BASO % 0.5 % (0.1-1.2); EOS # 0.27 (0.04-0.54); EOS % 3.6 % (0.7-7.0); LYMPH # 1.90 (1.18-3.74); LYMPH % 25.1 % (19.3-53.1); MEAN PLATELET VOLUME 10.80 fl (9.4-12.4); MONO # 0.67 (0.24-0.82); MONO % 8.9 % (4.7-12.5); NEUT # 4.67 (1.56-6.13); NEUT % 61.6 % (34.0-71.1); RED CELL DISTRIBUTION WIDTH 13.5 % (11.6-14.4)
[2025-09-27 08:02] LABS: ERYTHROCYTE SEDIMENTATION RATE 46 mm/hr (0-30)
[2025-09-27 08:32] LABS: ALT/SGPT 20.0 U/L (12-78); AST/SGOT 14.0 U/L (15-37); BILIRUBIN TOTAL 0.67 mg/dL (0.3-1.2); CHOL HDL RATIO 2.1 (0-5.0); FREE TRIODOTIRONINE 2.24 pg/ml (2.18-3.98); GLOBULINA 3.7 G/DL (2.4-3.5); GLUCOSE FASTING 90.0 mg/dL (65-100); HDL 65.0 mg/dl (40-60); LDL 57.0 mg/dl (0-130); OSMOLALITY SERUM 279.0 MOSM/KG (275-295); T4 TOTAL 8.22 UG/DL (4.8-13.9); TSH 2.31 uIU/mL (0.358-3.74); VLDL 16.0 (0-39)
[2025-09-27 09:02] LABS: BUN CREA RATIO 6.0 (7.0-25.0); GFR 6.29
[2025-09-27 09:04] LABS: CREATININE SERUM 6.48 mg/dL (0.55-1.02)
== END 2025-09-27 06:11 | disposition home or self-care (01) ==
LOC: LAB 06:07
PROVIDERS: ATTEND Internal Medicine
DX: K80.20 Calculus of gallbladder without cholecystitis without obstruction (principal); D64.9 Anemia, unspecified; E55.9 Vitamin D deficiency, unspecified; I10 Essential (primary) hypertension; E11.9 Type 2 diabetes mellitus without complications; Z78.9 Other specified health status; E03.9 Hypothyroidism, unspecified